=== PATIENT | female | born 1960 | race Caucasian/White ===

== ENCOUNTER → 2016-10-13 | Outpatient (CLI) | payer OTHER ==
[~2016-10-13] MED LIST: ASCO10003 PO; CALC500T PO; FLUO10CA15 PO; LEVO100T PO; LIOT5TAB PO; MAGN500T3 PO; MULT-506 PO; OMEG10007 PO; SNG10 PO; allergy shots
--- NOTE | 2016-10-13 15:20 | DIAGNOSTIC IMAGING REPORT ---
ADDENDUM In the body of the report, second paragraph a line states "mild gastroenteritis involves the temporomandibular joints". That sentence should read: "Mild degenerative change involves the temporal mandibular joints". Electronically signed by: South Das M.D. 10/17/2016 7:13 AM Dictated Date/Time: 10/17/2016 7:11 AM ORIGINAL REPORT FUSION CT SINUSES W/O HISTORY:56 [id number] Chronic sinusitisPATIENT WITH RECURRENT ACUTE SINUSITIS. HISTORY OF BREAST CANCER. COMPARISON: None available. TECHNIQUE: Multiple axial CT images of the paranasal sinuses were obtained without IV contrast utilizing fusion protocol. Coronal reformatted images were obtained from the axial data set. FINDINGS: The maxillary, ethmoid and frontal sinuses appear to be generally clear. Mild amount of bubbly secretions are seen dependently within the left sphenoid sinus. Right sphenoid sinus is clear. Note is made of a right-sided infraorbital ethmoid cell (nicely seen on image 30 of the coronal series) with similar appearing lesion seen on the left on image 32. The bilateral maxillary ostiomeatal units are patent. The bilateral frontoethmoidal and sphenoethmoidal recesses are patent. No large aida bullosa. Nasal septum is midline. Mild gastroenteritis involves the temporomandibular joints. No facial bone fracture identified. Mastoid air cells and middle ear cavities are clear. Imaged intracranial structures are unremarkable. Soft tissues are unremarkable. IMPRESSION: 1. Mild layering bubbly secretions are present within the left sphenoid sinus. Remaining paranasal sinuses are generally clear. No ostiomeatal occlusive pattern. 2. Small bilateral infraorbital ethmoid air cells (Larry cells). The above report was generated using voice recognition software. It may contain grammatical, syntax or spelling errors. Electronically signed by: South Das 10/13/2016 3:19 PM Dictated Date/Time: 10/13/2016 3:12 PM
== END | disposition home or self-care (01) ==
LOC: C.CTS 14:26
DX: J32.9 Chronic sinusitis, unspecified (principal); J34.89 Other specified disorders of nose and nasal sinuses

== ENCOUNTER → 2017-06-19 | Outpatient (CLI) | payer OTHER ==
--- NOTE | 2017-06-19 14:15 | DIAGNOSTIC IMAGING REPORT ---
TWO VIEW CHEST CLINICAL HISTORY: Bronchitis. FINDINGS: PA and lateral chest radiographs are compared to study dated 01/12/2012. The cardiomediastinal silhouette is unremarkable. The lungs and pleural spaces are clear. There is no pneumothorax. The bony thorax appears intact. Cholecystectomy clips are seen in the right upper quadrant. IMPRESSION: No active disease in the chest. Electronically signed by: Bry White M.D. 06/19/2017 2:14 PM Dictated Date/Time: 06/19/2017 2:14 PM
== END | disposition home or self-care (01) ==
LOC: C.RAD1850 14:02
PROVIDERS: ATTEND Internal Medicine Pulmonary Disease
DX: J40 Bronchitis, not specified as acute or chronic (principal)

== ENCOUNTER → 2017-06-19 | Outpatient (CLI) | payer OTHER ==
--- NOTE | 2017-06-19 15:33 | DIAGNOSTIC IMAGING REPORT ---
L RIBS UNILATERAL MIN 2 VIEWS HISTORY: 57 years-old Female RIB PAIN acute atypical chest pain with left-sided rib pain. No acute injury reported. COMPARISON: Chest radiograph of same day, CT chest 01/22/2015 TECHNIQUE: 4 views of the left ribs FINDINGS: Degenerative changes are noted about the left shoulder and spine. Irregular lucency with cortical irregularity involves the posterior lateral aspect of the left eighth rib. No acute displaced rib fracture identified. The remaining ribs are unremarkable. Surgical clips of the right upper abdomen are noted. IMPRESSION: 1. Subtle linear lucency with cortical irregularity involves the posterior lateral aspect of the left eighth rib. Correlate with point tenderness to exclude acute nondisplaced fracture. 2. No acute displaced rib fracture identified. The above report was generated using voice recognition software. It may contain grammatical, syntax or spelling errors. Electronically signed by: South Das M.D. 06/19/2017 3:31 PM Dictated Date/Time: 06/19/2017 3:28 PM
== END | disposition home or self-care (01) ==
LOC: C.RAD1850 14:57
PROVIDERS: ATTEND Physician Assistant Medical
DX: R07.81 Pleurodynia (principal)

== ENCOUNTER → 2017-07-20 | Outpatient (CLI) | payer OTHER ==
--- NOTE | 2017-07-20 08:27 | DIAGNOSTIC IMAGING REPORT ---
ABDOMINAL ULTRASOUND, RIGHT UPPER QUADRANT HISTORY: LIVER MASS SEEN ON CT. COMPARISON: Abdomen and pelvis CT 07/10/2017 outside hospital. FINDINGS: Pancreas: The pancreas demonstrates a normal echotexture. Liver: There is 1.1 cm hypoechoic lesion within the left hepatic lobe. There is also a 1.4 echogenic focus within the right hepatic lobe. Slightly nodular contour to the liver consistent with cirrhosis. Gallbladder: The gallbladder is surgically absent. CBD: 4 mm. Right kidney: No hydronephrosis. IMPRESSION: 1. A 1.1 cm hypoechoic lesion within the left hepatic lobe and 1.4 cm echogenic lesion within the right hepatic lobe. These are technically indeterminate by ultrasound. Follow-up nonemergent liver MRI would be considered the test of choice for further evaluation. 2. Cirrhotic liver. Electronically signed by: Eric Clements M.D. 07/20/2017 8:26 AM Dictated Date/Time: 07/20/2017 8:23 AM
== END | disposition home or self-care (01) ==
LOC: C.ULTR 07:55
PROVIDERS: ATTEND Internal Medicine Hematology & Oncology
DX: C41.2 Malignant neoplasm of vertebral column (principal); D49.0 Neoplasm of unspecified behavior of digestive system; K76.9 Liver disease, unspecified; K74.60 Unspecified cirrhosis of liver

== ENCOUNTER → 2017-07-27 | Outpatient (CLI) | payer OTHER ==
--- NOTE | 2017-07-28 07:47 | DIAGNOSTIC IMAGING REPORT ---
PET/CT CLINICAL HISTORY: Unspecified neoplasm of the vertebral column. COMPARISON STUDY: CT scan of the chest, abdomen, and pelvis dated 07/10/2017. Chest CT dated 01/22/2015. TECHNIQUE: One hour following the IV administration of 10.6 mCi of F-18 FDG, PET/CT examination was performed from the orbital meatal line through the bony pelvis. Noncontrast CT is performed for the purposes of anatomic correlation and attenuation correction. Note that this does not reflect a diagnostic CT examination. Images were reviewed on a separate [employer] independent workstation. Fused images were obtained. Standard uptake values reported are maximum values within the region of interest expressed in gm/mL. FINDINGS: PET FINDINGS: Head and neck: There is expected physiologic activity within the visualized brain parenchyma at the skull base and the salivary glands. Thorax: Evaluation of the thorax demonstrates expected physiologic myocardial activity. Abdomen and pelvis: There is expected activity within the liver, spleen, kidneys, renal collecting system, and bladder. Low-level bowel activity is likely within physical limits. There is an approximately 7 x 6.5 cm lesion is identified in the right lobe of liver on image #130. This is FDG avid with a maximum SUV of 5.0. Numerous additional smaller hepatic lesions are identified, and are scattered throughout both hepatic lobes (enrollment representative lesions are seen on image #108, #110, #112, #120, and #122). These were also mildly FDG avid. A small aortocaval lymph node seen on image #150 demonstrates low level activity with a maximum SUV of 3.0. This measures 7 mm in short axis. Skeletal structures: Findings are consistent with diffuse osteolytic metastatic disease. Lesions are seen throughout all of the visualized bony structures and demonstrate a maximum SUV of 6.6. No pathologic fracture is clearly identified. Note that large lesions within the right proximal femoral shaft, the sacrum and bony pelvis, and the spine place the patient at risk for insufficiency fracture. Unenhanced CT images: Visualized brain parenchyma the skull base is grossly normal in appearance. The bony orbits are intact. Orbital contents are normal as visualized. The imaged paranasal sinuses and mastoid air cells are clear. The salivary and thyroid glands are normal as visualized. No cervical lymphadenopathy is seen. There is aneurysmal dilatation of the ascending thoracic aorta which measures up to 4.4 cm in transverse diameter. The remainder of the thoracic aorta is normal in caliber. The heart is normal in size and without pericardial effusion. There is no airspace consolidation or pleural effusion. Linear atelectasis versus scarring is seen at the lung bases. Multiple foci of air trapping are noted throughout both lungs. No concerning pulmonary lesion is identified. There is no mediastinal, hilar, or axillary lymphadenopathy. The gallbladder is surgically absent. The liver is normal in size. See above under PET findings for discussion of hepatic lesions. The unenhanced spleen, right adrenal gland, and kidneys are normal as imaged. A 1.6 cm left adrenal nodule is pathologically indeterminant but was not demonstrably FDG avid. This has likely been present dating back to 2014. The pancreas is atrophic. The abdominal aorta is normal in course and caliber. No bowel obstruction is identified. Retained enteric contrast is noted. There is no abdominal ascites or intraperitoneal free air. There is no abdominal, pelvic, or inguinal lymphadenopathy. The bladder is normal as imaged. The uterus is surgically absent. No adnexal lesion is seen. The skeletal structures are osteopenic. IMPRESSION: 1. Findings are consistent with diffuse osteolytic metastatic disease. Lesions are seen throughout all visualized bony structures and were demonstrably FDG avid. 2. No pathologic fracture is identified at this time. Note that lesions throughout the spine, the bony pelvis, and in the right femoral shaft place the patient at risk for insufficiency fracture. 3. There is a dominant 7 cm hepatic mass lesion in the right lobe with numerous additional smaller lesions seen scattered throughout the liver. These were FDG avid and could represent hepatic metastatic disease versus primary hepatic neoplasm. Correlation with serum AFP levels is recommended. 4. There is a mildly FDG avid retroperitoneal lymph node. Metastatic disease is not excluded. 5. There is aneurysmal dilatation of the ascending thoracic aorta which measures up to 4.4 cm in transverse diameter. 6. Additional findings as detailed above. Electronically signed by: Bry White M.D. 07/28/2017 7:46 AM Dictated Date/Time: 07/28/2017 7:26 AM
== END | disposition home or self-care (01) ==
LOC: C.PET 12:03
PROVIDERS: ATTEND Internal Medicine Hematology & Oncology
DX: C41.2 Malignant neoplasm of vertebral column (principal)

== ENCOUNTER 2017-08-04 13:42 | Inpatient (IN) | payer OTHER ==
[~2017-08-04] VITALS: Ht 162.6 cm; Wt 57.2 kg
[2017-08-04] MEDS ORDERED: ACETAMINOPHEN 325 MG TAB PO PRN (15:15)
[2017-08-04] MEDS ORDERED: POLYETHYLENE (MIRALAX) 17 GM PACK PO PRN (15:15)
[2017-08-04] MEDS ORDERED: ZOLPIDEM TARTRATE 5 MG TAB PO PRN (15:15)
[2017-08-04] MEDS ORDERED: ONDANSETRON INJ 2 MG/ML 2 ML VIAL IV PRN (15:15)
[2017-08-04] MEDS ORDERED: MoRPHine SULFATE 4 MG/ML 1 ML CARP\\VIAL IV PRN (15:15)
[2017-08-04] MEDS ORDERED: ALUMINUM/MAGNESIUM/SIMETH (MAALOX MAX) 30 ML UDC PO PRN (15:15)
[2017-08-04] MEDS ORDERED: FUROSEMIDE INJ 20 MG in SYRINGE 0 ML IV STA (15:26)
[2017-08-04] MEDS ORDERED: PANTOprazole INJ 40 MG in SYRINGE 0 ML IV ONE (15:30)
--- NOTE | 2017-08-04 15:40 | History and Physical ---
History & Physical Date of Service August 04, 2017. History & Physical severe Hypercalcemia, malignancy metastasis, [id number]
[2017-08-04] MEDS ORDERED: POTASSIUM CHLORIDE 10 MEQ TABCR PO STA (15:42)
[2017-08-04] MEDS ORDERED: SODIUM CHLORIDE 0.9% 1000ML 1,000 ML IV SCH (15:45)
--- NOTE | 2017-08-04 15:55 | DIAGNOSTIC IMAGING REPORT ---
HEAD WITHOUT CONTRAST (CT) CLINICAL HISTORY: 57 years-old Female with severe HYpercalcimia, malignancy metastasis. Acute hypercalcemia with osteolytic metastatic disease TECHNIQUE: Multiple axial CT images of the head were obtained without contrast. A dose lowering technique was utilized adhering to the principles of ALARA. CT DOSE: 537.48 mGy.cm COMPARISON: PET CT 07/27/2017. FINDINGS: No acute intracranial hemorrhage, midline shift, intracranial mass, hydrocephalus, territorial ischemia or abnormal extra-axial collection. The calvarium is intact. No definite bony metastasis identified. The paranasal sinuses, mastoid air cells, and middle ear cavities are clear. IMPRESSION: No acute intracranial abnormality identified. The above report was generated using voice recognition software. It may contain grammatical, syntax or spelling errors. Electronically signed by: South Das M.D. 08/04/2017 3:54 PM Dictated Date/Time: 08/04/2017 3:51 PM
[2017-08-04] MEDS ORDERED: PATIENT'S HEIGHT AND/OR WEIGHT NEEDED SCH (16:00)
[2017-08-04] MEDS ORDERED: HydrALAZINE HCL 20 MG/ML VIAL IV. PRN (16:00)
[2017-08-04 16:10] VITALS: BMI 21.9
[2017-08-04 16:25] LABS: CALCIUM 13.9 mg/dl (8.5-10.1); CREATININE 1.31 mg/dl (0.60-1.20); PHOSPHORUS 3.2 mg/dl (2.5-4.9); POTASSIUM 3.4 mmol/L (3.5-5.1)
[2017-08-04] MEDS: POTASSIUM CHLORIDE INJ 10 MEQ in SODIUM CHLORIDE 0.9% 1000ML 1,000 ML IV SCH ×2 (16:30→21:10)
[2017-08-04 16:31] VITALS: BP 174/94; PULSE 78; TEMP 36.5; Ht 162.6 cm; Wt 57.2 kg
--- NOTE | 2017-08-04 17:13 | HISTORY & PHYSICAL EXAMINATION ---
DATE OF ADMISSION: 08/04/2017 This is an admission, 35 minutes. CHIEF COMPLAINT: Severe hypercalcemia, generalized weakness and nausea and vomiting. HISTORY OF PRESENT ILLNESS: Patient is a 57-year-old white female with the above chief complaint, was seen by Dr. Koehler 's clinic today. Patient reported she was found to have cancer metastasis to her bone about 3 weeks ago; in recent 5 days, she is feeling about significant tired, weakness, associated with nausea and vomiting, not able to keep any fluid down, and reports whole body ache, especially in cervical spine. She was found to have metastatic malignancy, the source of the malignancy is unknown. In Dr. Koehler's office lab was done. CBC was not remarkable. Potassium was 3.4, BUN and creatinine was elevated. Calcium is significant high at 14.9. Patient got IV infusion in Dr. Koehler's office and then patient had admission to the hospital. When I see patient, she is awake, alert, and orientated, conversational, confirming the above information. After IV infusions, she is feeling much better. Denied fever or chill, denied nausea or vomiting; denied abdominal pain, diarrhea, or constipation. Denied cough, sputum, shortness of breath. Denies skin rashes. Patient may have mild headache, denied blurry vision, double visions or local weakness. ALLERGIES: No known drug allergies. PAST SURGICAL HISTORY: Includes hysterectomy, cholecystectomy. OTHER PAST MEDICAL HISTORY: Includes left breast cancer, has lobectomy about 5 years ago in [facility]. FAMILY HISTORY: Father has prostate cancer. SOCIAL HISTORY: Denied alcohol abuse disorder, denied illicit drug abuse, denied tobacco abuse. REVIEW OF SYSTEMS: Please see HPI, otherwise 14 points organ system review were negative. MEDICATIONS: Medications taking at home which include fish oil 1 tab p.o. daily, multiple vitamin 1 tab p.o. daily, vitamin C 1000 mg p.o. daily, calcium gluconate 500 mg p.o. daily, Prozac 10 mg p.o. daily, levothyroxine 100 mcg p.o. daily; liothyronine 5 mcg tablets, 10 mcg p.o. daily; montelukast 10 mg p.o. daily. PHYSICAL EXAMINATION: VITAL SIGNS: Patient is afebrile, blood pressure at 110/70, respiratory rate 20, pulse ox was 95% on room air. GENERAL: Patient is awake, alert, and orientated, conversational, follows all commands, looking faint, mild anxious, a little bit tired. HEAD: Normocephalic. EYES: Pupils equal, round, responds to the light. EARS: Ear was normal. NOSE: Normal. NECK: Supple. Thyroid no enlargement. Trachea midline. HEART: Regular rhythm. S1, S2. LUNGS: Decreased breathing sounds. No wheezing, rhonchi or crackles. ABDOMEN: Soft, nontender. Bowel sound was positive. Bilateral CVA was nontender. MUSCULOSKELETAL: C-spine, T-spine, L-spine, no obvious tenderness. EXTREMITIES: Bilateral lower extremities, no swelling. Homans sign was negative. NEUROLOGICAL EVALUATION: Cranial nerves II-XII was intact. There was no local deficits. SKIN: Has no rashes. LABORATORY STUDIES: Like I mentioned, WBC 8.9, hemoglobin 13, platelet 153. Sodium 138, potassium 3.4, chloride 103, BUN 29, creatinine 1.38 compared to recent BUN and creatinine was 21/0.8 which was about 3 weeks ago. Calcium was 14.9 from 10.1. Alkaline phosphate is mildly elevated at 190. Total protein [address], [address] Koehler ordered some tumor markers include AFP, serotonin and SPEP. IMAGING STUDIES: on 06/19/2017, chest x-ray has no acute disease. Rib x-ray, there was no acute displaced rib fractures identified. Abdominal ultrasound studies on 07/20/2017, there was 1.1 cm hypoechoic lesion in the left hepatic lobe and 1.4 cm echogenic lesion in the right hepatic lobe. Recommend MRI studies and there was also showing cirrhotic liver. On 07/27/2017, PET/CT studies show diffuse osteolytic metastatic disease. There was dominant 4 cm hepatic mass in the right lobe. Numerous additional smaller lesions scattered throughout the liver. There was aneurysmal dilatations in the ascending thoracic aorta measured 4.4 cm. ASSESSMENT AND PLAN: A 57-year-old white female who is in the conditions see below. 1. Severe nausea and vomiting secondary to hypercalcemia. 2. Severe hypercalcemia, etiology unknown, may be malignancy related. 3. 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 This is recently diagnosed about 3 weeks ago. The source of the malignancy is unclear and we do not have any recent results. Patient has diffuse osteolytic metastatic disease. obviously metastasis to the liver too which is evident by exit of 7 cm hepatic mass with numerous liver metastatic disease. 4. Patient has history of left breast cancer status post lobectomy. 5. History of hysterectomy and right ovary removal. 6. History of asthma and anxiety. 7. Possible liver cirrhotic disease with history of possible heavy alcohol intake, but patient denied any history of abuse of alcohol. For the current situation, because of severe hypercalcemia, I am admitting her to [facility] monitoring, check EKG. Continue IV infusion and assess at 200 mL per hour. I will give Lasix 40 mg IV 1 dose now and daily 1 to get rid of the calciums and watch for electrolyte levels. Tomorrow morning lab ordered. Like I mentioned, Dr. Koehler is in follow up. I ordered a TSH, vit D level , parathyroid hormone and parathyroid hormone-related protein. Per conversation with Dr. Koehler possibility is neuroendocrine malignancy. Therefore head CT was ordered. Other medical conditions such as asthma, we will continue Singulair; anxiety, we will continue Prozac, will check vitamin D as well; GI and DVT prophylaxis is covered. Discussed with patient about the care plan and answered all her questions. SANDORD
[2017-08-04 17:21] LABS: HEMATOCRIT 39.2 % (37-47); HEMOGLOBIN 13.6 g/dL (12.0-16.0); MEAN CORPUSCULAR HEMOGLOBIN 29.5 pg (25-34); MEAN CORPUSCULAR HGB CONC 34.7 g/dl (32-36); MEAN PLATELET VOLUME 8.9 fL (7.4-10.4); PLATELET COUNT 167 K/uL (130-400); RED CELL DISTRIBUTION WIDTH SD 39.6 fL (36.4-46.3); WHITE BLOOD COUNT 10.01 K/uL (4.8-10.8)
[2017-08-04 19:28] VITALS: BP 159/88; PULSE 93; TEMP 36.6; O2SAT 92
[2017-08-04 20:20] VITALS: O2SAT 92
[2017-08-04] MEDS: PANTOprazole INJ 40 MG in SYRINGE 0 ML IV SCH (20:41)
[2017-08-04] MEDS: HEPARIN SOD 5000 UNIT/0.5 ML CARP SQ SCH (20:48)
[2017-08-04] MEDS: OXYCODONE/ACETAMINOPHEN 5-325 TAB PO PRN (23:31)
[2017-08-04 23:32] VITALS: BP 151/110; PULSE 78; TEMP 36.7; O2SAT 94
[2017-08-05] VITALS (7 sets, daily range): BP systolic 121–153; BP diastolic 75–94; PULSE 74–99; TEMP 36.6–38.1; O2SAT 90–98
[2017-08-05] MEDS: POTASSIUM CHLORIDE INJ 10 MEQ in SODIUM CHLORIDE 0.9% 1000ML 1,000 ML IV SCH ×4 (03:03→19:38)
[2017-08-05] MEDS: LEVOTHYROXINE 75 MCG TAB PO SCH (05:40)
[2017-08-05] MEDS ORDERED: LEVOTHYROXINE 100 MCG TAB PO SCH (06:00)
[2017-08-05 06:54] LABS: BASO % 0.3 %; BASO ABS # 0.03 K/uL (0-0.2); EOS % 1.1 %; HEMATOCRIT 33.8 % (37-47); HEMOGLOBIN 11.5 g/dL (12.0-16.0); IG# 0.12 K/uL (0.00-0.02); LYMPH % 41.4 %; LYMPH ABS # 3.78 K/uL (1.2-3.4); MEAN CELL VOLUME 85.4 fL (80-100); MEAN PLATELET VOLUME 9.4 fL (7.4-10.4); MONO ABS # 0.55 K/uL (0.11-0.59); NEUT % 49.9 %; NEUT ABS # 4.54 K/uL (1.4-6.5); PLATELET COUNT 148 K/uL (130-400); RED CELL DISTRIBUTION WIDTH SD 40.2 fL (36.4-46.3); WHITE BLOOD COUNT 9.12 K/uL (4.8-10.8)
[2017-08-05 07:32] LABS: CALCIUM 13.7 mg/dl (8.5-10.1); CREATININE 1.42 mg/dl (0.60-1.20); PHOSPHORUS 3.5 mg/dl (2.5-4.9); POTASSIUM 3.7 mmol/L (3.5-5.1)
[2017-08-05] MEDS: FLUOXETINE HCL 10 MG CAP PO SCH (07:52)
[2017-08-05] MEDS: FUROSEMIDE INJ 40 MG in SYRINGE 0 ML IV SCH (07:54)
[2017-08-05] MEDS: PANTOprazole INJ 40 MG in SYRINGE 0 ML IV SCH ×2 (07:55→20:46)
[2017-08-05] MEDS: HEPARIN SOD 5000 UNIT/0.5 ML CARP SQ SCH ×2 (07:57→20:51)
[2017-08-05] MEDS: OXYCODONE/ACETAMINOPHEN 5-325 TAB PO PRN ×3 (07:58→20:47)
[2017-08-05] MEDS ORDERED: NURSING VERBAL MED ORDER ONE ×4 (08:00→08:45)
[2017-08-05] MEDS ORDERED: ZOLEDRONIC ACID INJ 4 MG in SODIUM CHLORIDE 0.9% 100ML 100 ML IV ONE (08:15)
[2017-08-05] MEDS: LIOTHYRONINE SODIUM 5 MCG TAB PO SCH ×2 (08:22→15:36)
[2017-08-05] MEDS ORDERED: MONTELUKAST SOD 10 MG TAB PO SCH (09:00)
[2017-08-05] MEDS ORDERED: SODIUM CHLORIDE 0.9% IV ONE (09:00)
[2017-08-05] MEDS ORDERED: PAMIDRONATE DISODIUM IV INJ 60 MG in SODIUM CHLORIDE 0.9% 1000ML 1,000 ML IV ONE (09:00)
[2017-08-05] MEDS ORDERED: PAMIDRONATE DISODIUM IV ONE (09:00)
[2017-08-05] MEDS ORDERED: FLUOXETINE HCL 10 MG CAP PO SCH (09:00)
[2017-08-05] MEDS ORDERED: LIOTHYRONINE SODIUM 5 MCG TAB PO SCH (09:00)
--- NOTE | 2017-08-05 10:29 | ONCOLOGY CONSULTATION ---
DATE OF CONSULTATION: 08/05/2017 REASON FOR CONSULTATION: Hypercalcemia secondary to malignancy. HISTORY OF PRESENT ILLNESS: Suellen is a pleasant 57-year-old female patient well known to [facility] in fact admitted directly from the oncology clinic today because of elevated calcium levels. The patient reports not feeling well, manifested by fatigue, weakness and nausea and vomiting. 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 She did receive adjuvant radiation therapy. Apparently, was seen by Dr. Koehler in June at which time she had suffered a rib fracture. Her chest x-ray had confirmed fracture involving the anterolateral 7th rib and MRI was recommended. MRI was performed on 07/08/2017 complicated by motion artifact. However, there was abnormal enhancement seen in both the thoracic and upper lumbar spine. It was also noted that her liver appeared abnormal specifically within the right hepatic lobe. A PET scan was then performed on 07/27/2017 revealing hypermetabolic lesions throughout her entire axial skeleton with a large FDG avid mass within the right lobe of the liver. Dr. Koehler then performed a bone marrow biopsy and aspiration on 07/29/2017 revealing metastatic carcinoma, primary unknown. I believe the pathology has been sent out for second opinion. Again, in clinic yesterday, she was noted to have significantly elevated calcium in excess of 14 and was directly admitted for management. PAST MEDICAL HISTORY: Again, includes DCIS of the left breast, status post lumpectomy. Hypothyroidism. PAST SURGICAL HISTORY: Includes hysterectomy and cholecystectomy. MEDICATIONS: Prior to admission include fish oil 1 tablet p.o. daily, multivitamin 1 tablet p.o. daily, vitamin C 1000 mg p.o. daily, calcium gluconate 500 mg p.o. daily, Prozac 10 mg p.o. daily, levothyroxine 100 mcg p.o. daily, liothyronine 5 mcg 2 tablets p.o. daily, Singulair 10 mg p.o. daily. ALLERGIES: No known drug allergies. FAMILY HISTORY: Positive for prostate cancer on her father's side. SOCIAL HISTORY: Negative for alcohol, illicit drugs or tobacco abuse. REVIEW OF SYSTEMS: As per HPI most notably for a profound weakness, anorexia and nausea and vomiting. No fevers, chills or sweats. SKIN: No rashes or lesions. No history of dermatosis. HEENT: Negative for headaches, lightheadedness or dizziness. No acute visual or hearing deficits. No sinus symptoms, sore throat or dysphagia. LYMPHATIC: No history of peripheral lymphadenopathy or lymphoproliferative disease. CARDIAC: Negative for coronary artery disease, no angina or palpitations. PULMONARY: Negative for COPD. No shortness of breath, dyspnea or orthopnea. No cough or hemoptysis. GASTROINTESTINAL: Positive for nausea and vomiting. No abdominal pain. Negative for diarrhea or constipation. No hematochezia or melena stools. GENITOURINARY: No history of hematuria, dysuria, urinary incontinence. PSYCHIATRIC: Positive for anxiety. ENDOCRINE: Positive for hypothyroidism. NEUROLOGIC: Negative for seizure, stroke, or migraine headache. HEMATOLOGIC: Negative for anemia, thrombophilia or bleeding diathesis by history. PHYSICAL EXAMINATION: GENERAL: Very pleasant 57-year-old female, lying supine in bed, awake, alert and appropriate, in no acute distress. VITAL SIGNS: Temperature 36.7, pulse 77, respiratory rate 18, blood pressure 147/89. SKIN: Warm, dry, noncyanotic without petechia, rash or ecchymosis. HEAD: Atraumatic, normocephalic. EYES: PERRLA, EOMI. Sclerae nonicteric. No conjunctival injection. Nares are patent without rhinorrhea or discharge. Throat is clear. Tongue is midline. Mucous membranes are moist. NECK: Supple without JVD or thyromegaly. LYMPHATIC: No cervical, supraclavicular, axillary palpable nodes. HEART: Regular rate and rhythm. No clicks, rubs, murmurs or gallops. LUNGS: Clear to auscultation bilaterally. ABDOMEN: Soft, nontender, nondistended, without palpable hepatosplenomegaly. EXTREMITIES: Musculoskeletal strength and pulses are equal in all 4 quadrants. No clubbing, cyanosis or edema noted otherwise. NEUROLOGICAL: She is awake, alert and oriented x3. Cranial nerves II through XII were intact. No gross motor or sensory deficits are noted. LABORATORY DATA: WBC count 9120, hemoglobin 11.5, platelet count 148,000. Sodium 139, potassium 3.7, chloride 108, carbon dioxide 27, creatinine 1.42, BUN 29. IMPRESSION: 1. Hypercalcemia, secondary to malignancy. 2. Metastatic carcinoma, primary unknown. 3. Acute renal injury. 4. Nausea and vomiting, attributable to hypercalcemia. PLAN: The patient is a very pleasant 57-year-old female under Dr. Koehler's care, recently diagnosed with metastatic carcinoma, primary unknown. I believe the pathology has been sent out for second opinion. Nonetheless, developed symptoms related to elevated calcium level and was admitted to the medical service. Agree with IV fluid and a loop diuretic. In addition, would add pamidronate 60 mg IV over 2 hours. With her renal insufficiency, would definitely not proceed with a full dose. Continue to monitor electrolytes, specifically calcium on a daily basis. We will make arrangements for Suellen to follow up expediently with Dr. Koehler upon discharge. I have nothing further to add at this point. If there are any concerns or questions, feel free to contact me at any time.
[2017-08-05] MEDS ORDERED: FUROSEMIDE INJ 20 MG in SYRINGE 0 ML IV ONE (14:15)
--- NOTE | 2017-08-05 16:31 | Progress Note ---
Subjective Date of Service: August 05, 2017. Subjective pt states that she feels better despite only a very minor reduction in her Ca++ level, I did personally speak to pathology Dr Chauhan, Oncology Dr Koehler and the patients today regarding her case, these conversations took 45 minutes total discussion time in addition to her regular inpatient visit Review of Systems Constitutional: + weakness, + fatigue, No fever, No chills Respiratory: No cough, No shortness of breath, No dyspnea on exertion Cardiac: No chest pain, No PND, No edema Abdomen: + nausea, + constipation, No pain, No vomiting, No diarrhea Musculoskeletal: + joint pain, + muscle pain Female : + urinary frequency, No dysuria Neurologic: + weakness, No memory loss Psychiatric: + depression symptoms, No anhedonism Objective Vital Signs Date Time Temp Pulse Resp B/P (MAP) Pulse Ox O2 Delivery O2 Flow Rate FiO2 08/05/17 04:23 36.6 74 18 137/83 (101) 98 Nasal Cannula 2.0 08/05/17 04:00 Room Air 08/05/17 00:00 Room Air 08/04/17 23:32 36.7 78 18 151/110 (124) 94 Room Air 08/04/17 20:20 92 Room Air 08/04/17 19:28 36.6 93 16 159/88 (111) 92 Room Air 08/04/17 16:31 36.5 78 16 174/94 Room Air Physical Exam General Appearance: + mild distress, + thin Eyes: normal inspection, sclerae normal Neck: supple, no JVD Respiratory/Chest: chest non-tender, lungs clear Cardiovascular: regular rate, rhythm, no murmur Abdomen: normal bowel sounds, non tender, soft Neurologic/Psychiatric: alert, oriented x 3 Laboratory Results Last 24 Hours Test 08/04/17 15:31 08/04/17 17:03 08/05/17 06:07 Sodium Level 138 mmol/L 139 mmol/L Potassium Level 3.4 mmol/L 3.7 mmol/L Chloride Level 105 mmol/L 108 mmol/L Carbon Dioxide Level 26 mmol/L 27 mmol/L Anion Gap 7.0 mmol/L 4.0 mmol/L Blood Urea Nitrogen 27 mg/dl 29 mg/dl Creatinine 1.31 mg/dl 1.42 mg/dl Est Creatinine Clear Calc Drug Dose 39.1 ml/min 36.9 ml/min Estimated GFR () 51.5 46.7 Estimated GFR (Non- 44.5 40.3 BUN/Creatinine Ratio 20.3 20.2 Random Glucose 102 mg/dl 95 mg/dl Calcium Level 13.9 mg/dl 13.7 mg/dl Phosphorus Level 3.2 mg/dl 3.5 mg/dl Magnesium Level 2.4 mg/dl 2.4 mg/dl Thyroid Stimulating Hormone (TSH) 0.140 uIu/ml Free Thyroxine 0.75 ng/dl Hepatitis C Antibody Screen NEG White Blood Count 10.01 K/uL 9.12 K/uL Red Blood Count 4.61 M/uL 3.96 M/uL Hemoglobin 13.6 g/dL 11.5 g/dL Hematocrit 39.2 % 33.8 % Mean Corpuscular Volume 85.0 fL 85.4 fL Mean Corpuscular Hemoglobin 29.5 pg 29.0 pg Mean Corpuscular Hemoglobin Concent 34.7 g/dl 34.0 g/dl RDW Standard Deviation 39.6 fL 40.2 fL RDW Coefficient of Variation 13.0 % 13.0 % Platelet Count 167 K/uL 148 K/uL Mean Platelet Volume 8.9 fL 9.4 fL Prothrombin Time 10.0 SECONDS Prothromb Time International Ratio 1.0 25-Hydroxy Vitamin D Total 17.5 ng/ml Parathyroid Hormone (Intact) < 6.3 pg/mL Neutrophils (%) (Auto) 49.9 % Lymphocytes (%) (Auto) 41.4 % Monocytes (%) (Auto) 6.0 % Eosinophils (%) (Auto) 1.1 % Basophils (%) (Auto) 0.3 % Neutrophils # (Auto) 4.54 K/uL Lymphocytes # (Auto) 3.78 K/uL Monocytes # (Auto) 0.55 K/uL Eosinophils # (Auto) 0.10 K/uL Basophils # (Auto) 0.03 K/uL Immature Granulocyte % (Auto) 1.3 % Immature Granulocyte # (Auto) 0.12 K/uL Assessment and Plan 57F presents with hypercalcemia and osteoblastic metastatic disease of undetermined primary, recently discovered 7 cm liver mass and h/o breast cancer Hypercalcemia, IVF and diuretic, will administer a pamidronate to assist with bone turnover from metastatic disease, consult Dr. Koehler head CT without concern for lesions. I spoke to pathology and her bone marrow biopsy is looking like a neuroendocrine tumor but not defined as of yet with consideration of sending to outsider review. I spoke to Dr Arnold who also consurs will be likely a neuroendocrine tumor but also may wish to have outside review to confirm as clinical presentation does not fit completely. goal of care this stay is to reduce calcium and may not be to begin treatment Over replacement of thyroid, will reduce her thyroid supplementation asthma, stable continue Singulair anxiety/depression, continue Prozac, consider palliative care involvement I spoke to pts with her permission, he requests to establish care with PCP in local area who works well with Dr Arnold heparin for DVT prevention
[2017-08-05] MEDS: MONTELUKAST SOD 10 MG TAB PO SCH (20:46)
[2017-08-05] MEDS: MAGNESIUM HYDROXIDE SUSP 30 ML UDC PO PRN (20:51)
[2017-08-06] VITALS (10 sets, daily range): BP systolic 122–151; BP diastolic 76–87; PULSE 78–98; TEMP 36.4–37.7; O2SAT 90–97
[2017-08-06] MEDS: POTASSIUM CHLORIDE INJ 10 MEQ in SODIUM CHLORIDE 0.9% 1000ML 1,000 ML IV SCH ×4 (00:27→18:39)
[2017-08-06] MEDS: LEVOTHYROXINE 75 MCG TAB PO SCH (06:02)
[2017-08-06 06:55] LABS: HEMATOCRIT 32.4 % (37-47); HEMOGLOBIN 11.3 g/dL (12.0-16.0); MEAN CELL VOLUME 83.9 fL (80-100); MEAN CORPUSCULAR HEMOGLOBIN 29.3 pg (25-34); MEAN CORPUSCULAR HGB CONC 34.9 g/dl (32-36); MEAN PLATELET VOLUME 8.8 fL (7.4-10.4); PLATELET COUNT 118 K/uL (130-400); RED CELL DISTRIBUTION WIDTH CV 13.2 % (11.5-14.5); RED CELL DISTRIBUTION WIDTH SD 39.8 fL (36.4-46.3); WHITE BLOOD COUNT 9.06 K/uL (4.8-10.8)
[2017-08-06] MEDS: MAGNESIUM HYDROXIDE SUSP 30 ML UDC PO PRN (07:06)
[2017-08-06 07:29] LABS: CALCIUM 11.3 mg/dl (8.5-10.1); CREATININE 1.35 mg/dl (0.60-1.20); POTASSIUM 3.5 mmol/L (3.5-5.1)
[2017-08-06] MEDS: LIOTHYRONINE SODIUM 5 MCG TAB PO SCH ×2 (07:59→16:11)
[2017-08-06] MEDS: FLUOXETINE HCL 10 MG CAP PO SCH (08:00)
[2017-08-06] MEDS: PANTOprazole INJ 40 MG in SYRINGE 0 ML IV SCH ×2 (08:00→21:26)
[2017-08-06] MEDS: FUROSEMIDE INJ 40 MG in SYRINGE 0 ML IV SCH (08:00)
[2017-08-06] MEDS: HEPARIN SOD 5000 UNIT/0.5 ML CARP SQ SCH ×2 (08:06→21:36)
[2017-08-06] MEDS ORDERED: IBUPROFEN 200 MG TAB PO ONE (08:30)
[2017-08-06] MEDS ORDERED: NURSING VERBAL MED ORDER ONE ×2 (08:30→11:15)
[2017-08-06] MEDS ORDERED: IBUPROFEN 200 MG TAB PO PRN (08:30)
--- NOTE | 2017-08-06 08:51 | HEME/ONC PROGRESS NOTE ---
DATE: 08/06/2017 DIAGNOSES: 1. Hypercalcemia, attributable to malignancy. 2. Metastatic carcinoma, primary unknown. 3. Acute renal injury. 4. Nausea and vomiting, attributable to hypercalcemia. SUBJECTIVE: Suellen was seen and examined at bedside this morning. Unfortunately, developed bifrontal headache overnight. Pamidronate is known to cause headache and suspect is the underlying cause. Otherwise, her calcium has come down nicely, presently measuring 11.3. Her creatinine is also improved to 1.35. Clinically, doing well otherwise. Await final pathology report. PHYSICAL EXAMINATION: GENERAL: She is in no acute distress. VITAL SIGNS: Temperature is 37.6, pulse 93, respirations 19, blood pressure 151/87. SKIN: Without rash or lesion. HEENT: Oral mucosa without erythema or ulceration. HEART: Regular rate and rhythm. LUNGS: Clear to auscultation bilaterally. ABDOMEN: Soft, nontender, nondistended. EXTREMITIES: No clubbing, cyanosis, or edema. NEUROLOGIC: She is grossly intact. LABORATORY DATA: Sodium 135, potassium 3.5, chloride 105, carbon dioxide 26, BUN 25, creatinine 1.35, calcium 11.3. WBC count 9060, hemoglobin 11.3, platelet count 118,000. IMPRESSION: 1. Hypercalcemia secondary to malignancy. 2. Metastatic carcinoma, primary unknown. 3. Acute renal injury. 4. Bifrontal headache. 5. Delusional cytopenias (anemia/thrombocytopenia). PLAN: I had the pleasure of visiting with Suellen at bedside again today. I was very pleased to see her calcium level is falling, presently measuring 11.3. Her creatinine is also improved. Unfortunately, she developed a bifrontal headache overnight and will order ibuprofen 400 mg p.o. q. 6 hours p.r.n. as Suellen utilizes this agent for headaches regularly. Pathology is pending. As long as her numbers continue to trend downward, I suspect she will be discharged in the next 24-48 hours. I will ensure expedient follow up with Dr. Koehler upon hospital discharge. I have nothing further to add at this juncture. Thank you again for allowing me to assist in the care of this very pleasant lady. [facility] HOSPITALMarissa
[2017-08-06] MEDS ORDERED: MoRPHine SULFATE 4 MG/ML 1 ML CARP\\VIAL IV PRN ×2 (11:00)
--- NOTE | 2017-08-06 11:50 | DIAGNOSTIC IMAGING REPORT ---
CHEST 2 VIEWS ROUTINE CLINICAL HISTORY: fever cough COMPARISON STUDY: 07/18/2017 FINDINGS: Bibasilar parenchymal infiltrates. And upper lungs are clear. Diaphragms are smooth. IMPRESSION: Bibasilar parenchymal infiltrates. The above report was generated using voice recognition software. It may contain grammatical, syntax or spelling errors. Electronically signed by: Suresh Angel M.D. 08/06/2017 11:49 AM Dictated Date/Time: 08/06/2017 11:48 AM
[2017-08-06] MEDS ORDERED: FUROSEMIDE INJ 40 MG in SYRINGE 0 ML IV ONE (15:00)
--- NOTE | 2017-08-06 17:09 | Progress Note ---
Subjective Date of Service: August 06, 2017. Subjective pt feels somewhat feverish and has headache, temp was noted, no focal issues at this time CXR with some basilar issues but not clear pneumonia pending urine culture Review of Systems Constitutional: + fever, + chills, + weakness, + fatigue, + problem reported ( headache) Respiratory: No cough, No sputum, No shortness of breath Cardiac: No chest pain, No orthopnea, No edema Abdomen: No pain, No nausea, No vomiting, No diarrhea Neurologic: No memory loss, No paralysis Psychiatric: + anxiety, No depression symptoms, No anhedonism Objective Vital Signs Date Time Temp Pulse Resp B/P (MAP) Pulse Ox O2 Delivery O2 Flow Rate FiO2 08/06/17 15:12 36.4 78 16 125/82 (96) 97 Room Air 08/06/17 12:37 Room Air 08/06/17 12:02 36.7 80 16 129/78 (95) 92 Room Air 08/06/17 11:52 36.6 81 19 137/82 (100) 94 Nasal Cannula 2.0 08/06/17 11:32 37.6 93 19 91 2.0 08/06/17 08:14 37.6 93 19 151/87 (108) 91 Room Air 08/06/17 08:00 Room Air 08/06/17 04:01 37.7 98 18 138/79 (98) 94 Room Air 08/06/17 04:00 94 Room Air 2.0 08/06/17 00:00 92 Room Air 2.0 08/05/17 23:14 38.1 99 20 153/83 (106) 90 Room Air 08/05/17 20:45 90 Room Air 08/05/17 18:45 37.1 88 18 121/75 (90) 90 Room Air Physical Exam General Appearance: WD/WN, + mild distress Eyes: normal inspection, sclerae normal Neck: supple, no JVD Respiratory/Chest: chest non-tender, + decreased breath sounds (bases) Cardiovascular: regular rate, rhythm, no murmur Abdomen: normal bowel sounds, non tender, soft Extremities: no pedal edema, no calf tenderness Neurologic/Psychiatric: alert, oriented x 3 Laboratory Results Last 24 Hours Test 08/06/17 06:31 White Blood Count 9.06 K/uL Red Blood Count 3.86 M/uL Hemoglobin 11.3 g/dL Hematocrit 32.4 % Mean Corpuscular Volume 83.9 fL Mean Corpuscular Hemoglobin 29.3 pg Mean Corpuscular Hemoglobin Concent 34.9 g/dl RDW Standard Deviation 39.8 fL RDW Coefficient of Variation 13.2 % Platelet Count 118 K/uL Mean Platelet Volume 8.8 fL Sodium Level 135 mmol/L Potassium Level 3.5 mmol/L Chloride Level 105 mmol/L Carbon Dioxide Level 26 mmol/L Anion Gap 4.0 mmol/L Blood Urea Nitrogen 25 mg/dl Creatinine 1.35 mg/dl Est Creatinine Clear Calc Drug Dose 38.8 ml/min Estimated GFR () 49.7 Estimated GFR (Non- 42.9 BUN/Creatinine Ratio 18.7 Random Glucose 119 mg/dl Calcium Level 11.3 mg/dl Assessment and Plan 57F presents with hypercalcemia and osteoblastic metastatic disease of undetermined primary, recently discovered 7 cm liver mass and h/o breast cancer Hypercalcemia, IVF and diuretic, did receive pamidronate to assist with bone turnover from metastatic disease, calcium has improved to 11.[address] Ry Knowles/Dr Negro head CT without concern for lesions. pathology is still looking like a neuroendocrine tumor goal of care this stay remains to reduce calcium and may not be to begin treatment fever, no obvious source, was associated with headache, no meningeal issues noted on my visit today, check ua, cxr not convincing for pneumonia, no wbc Over replacement of thyroid, will reduce her thyroid supplementation asthma, remains stable continue Singulair anxiety/depression, continue Prozac, anxiety about clarity of diagnosis consider palliative care involvement, pt is not ready yet I spoke to pts with her permission, he requests to establish care with PCP in local area who works well with Dr Arnold heparin for DVT prevention
[2017-08-06] MEDS: OXYCODONE/ACETAMINOPHEN 5-325 TAB PO PRN ×2 (17:32→21:25)
[2017-08-06] MEDS: MONTELUKAST SOD 10 MG TAB PO SCH (21:24)
[2017-08-07] MEDS: POTASSIUM CHLORIDE INJ 10 MEQ in SODIUM CHLORIDE 0.9% 1000ML 1,000 ML IV SCH ×2 (01:51→11:46)
[2017-08-07] MEDS: OXYCODONE/ACETAMINOPHEN 5-325 TAB PO PRN ×3 (05:48→12:41)
[2017-08-07] MEDS: LEVOTHYROXINE 75 MCG TAB PO SCH (05:48)
[2017-08-07 07:24] VITALS: BP 128/79; PULSE 83; TEMP 36.6; O2SAT 92
[2017-08-07] MEDS: FLUOXETINE HCL 10 MG CAP PO SCH (08:00)
[2017-08-07] MEDS: LIOTHYRONINE SODIUM 5 MCG TAB PO SCH (08:23)
[2017-08-07] MEDS: PANTOprazole INJ 40 MG in SYRINGE 0 ML IV SCH (08:24)
[2017-08-07] MEDS: FUROSEMIDE INJ 40 MG in SYRINGE 0 ML IV SCH (08:24)
[2017-08-07] MEDS: HEPARIN SOD 5000 UNIT/0.5 ML CARP SQ SCH (08:29)
--- NOTE | 2017-08-07 10:31 | HEME/ONC PROGRESS NOTE ---
DATE: 08/07/2017 DIAGNOSES: 1. Metastatic atypical carcinoid (neuroendocrine tumor). 2. Hypercalcemia, attributable to malignancy. 3. Acute renal injury. 4. Nausea and vomiting, attributable to hypercalcemia. SUBJECTIVE: Suellen was seen and examined at bedside again this morning. Much better headache, did improve overnight. Her calcium level now is in the 10 range. Creatinine is pending at the time of this dictation. Clinically, she is otherwise doing well. Final pathology is consistent with a low-grade neuroendocrine tumor. Dr. Koehler is planning to pursue octreotide scan which would most likely take place as outpatient. Suellen has no complaints of pain today and again nursing reports no overnight difficulties. PHYSICAL EXAMINATION: GENERAL: A very pleasant 57-year-old female, in no acute distress. VITAL SIGNS: Temperature 36.6, pulse 83, respirations 20, blood pressure 128/79. SKIN: Without rash or lesion. HEENT: Oral mucosa without erythema or ulceration. NECK: Supple. HEART: Regular rate and rhythm. LUNGS: Fine bibasilar crackles are heard. ABDOMEN: Soft, nontender, nondistended. EXTREMITIES: No clubbing, cyanosis, edema. NEUROLOGICAL: She is grossly intact. LABORATORY DATA: Calcium 10.7. IMPRESSION: 1. Metastatic atypical carcinoid. 2. Hypercalcemia, secondary to malignancy. 3. Acute renal injury. 4. Bifrontal headache. PLAN: Suellen was seen and examined again at bedside. Clinically, doing much better, tolerating diet, actually moved her bowels in the last 24 hours. Calcium now measures 10.7. Briefly, spoke to Dr. Koehler after seeing her and he would like an octreotide scan to be done once discharged from hospital. Ultimately, octreotide therapy is planned. From an oncologic standpoint, I have nothing further to add during this admission and will officially sign off. I anticipate she may be discharged in the next day or so. Thank you again for allowing us to participate in her care. MEGAN
--- NOTE | 2017-08-07 13:36 | Discharge Instructions ---
Discharge Instructions Date of Service August 07, 2017. Admission Reason for Admission: Malignant Neoplasm Of Bone,Hypercalcemia Discharge Discharge Diagnosis / Problem: elevated calcium Discharge Goals Goal(s): Diagnostic testing, Therapeutic intervention Activity Recommendations Activity Limitations: as noted below Lifting Limitations: gradually increase as tolerated . Instructions / Follow-Up Instructions / Follow-Up Please be sure to be well hydrated, water is good but also to include hydration other than water Please have outpt lab checks weekly results to Dr Arnold and your primary care doctor Current Hospital Diet Patient's current hospital diet: Regular Diet Discharge Diet Recommended Diet: Regular Diet Pending Studies Studies pending at discharge: no Medical Emergencies . Who to Call and When: Medical Emergencies: If at any time you feel your situation is an emergency, please call 911 immediately. . Non-Emergent Contact Non-Emergency issues call your: Primary Care Provider, Oncologist Call Non-Emergent contact if: temperature is above 101, your pain is unusual for you . . "Provider Documentation" section prepared by Remington Bateman. .
[2017-08-07 14:03] VITALS: BP 128/79; PULSE 83; TEMP 36.6; O2SAT 92
--- NOTE | 2017-08-07 16:00 | Discharge Summary ---
Discharge Summary Date of Service August 07, 2017. Discharge Summary Admission Date: August 04, 2017 at 14:45 Discharge Date: August 07, 2017 Discharge Disposition: Home Principal Diagnosis: malignancy associated hypercalcemia with symptoms Immunizations: Have You Had Influenza Vaccine: No History of Tetanus Vaccine?: No History of Pneumococcal: No Pneumococcal Date: Feb 02, 2002 History of Hepatitis B Vaccine: No Medication Reconciliation Continued Medications: Ascorbic Acid (Vitamin C) 1,000 Mg Tab 1 TAB PO DAILY Fish Oil ([place]-3) 1 Ea Cap 1 CAP PO DAILY, 0 Refills Fluoxetine Hcl (Pmdd) (Prozac) 10 Mg Cap 10 MG PO DAILY, CAP Levothyroxine Sodium (Synthroid) 100 Mcg Tab 100 MCG PO DAILY, TAB Liothyronine Sodium (Cytomel) 5 Mcg Tab 10 MCG PO DAILY, TAB Magnesium Gluconate (Magnesium Gluconate) 500 Mg Tab 1 TAB PO DAILY Montelukast Sod (Montelukast Sodium) 10 Mg Tab 1 TAB PO DAILY Multivitamin (Multivitamin) Tab 1 TAB PO DAILY, 0 Refills [allergy shots] () DIRECTED Discontinued Medications: Calcium Gluconate (Calcium Gluconate) 500 Mg Tab 1 TAB PO DAILY Discharge Exam Review of Systems: Constitutional: No fever, No chills, No sweats Respiratory: No cough, No sputum, No wheezing Cardiovascular: No chest pain, No orthopnea Abdomen: No pain, No nausea, No vomiting Musculoskeletal: No joint pain, No muscle pain Physical Exam: General Appearance: WD/WN, no apparent distress Eyes: normal inspection, sclerae normal Neck: supple, no JVD Respiratory/Chest: chest non-tender, lungs clear, normal breath sounds Cardiovascular: regular rate, rhythm, no murmur Abdomen / GI: normal bowel sounds, non tender, soft Extremities: no pedal edema, normal range of motion Hospital Course 57F presents with hypercalcemia and osteoblastic metastatic disease of undetermined primary, recently discovered 7 cm liver mass and h/o breast cancer Hypercalcemia, responded well to IVF, diuretic, and pamidronate Dr. Koehler/ Dr Negro have seen patients while here head CT without concern for lesions. pathology states bone marrow is still looking like a neuroendocrine tumor fever, no obvious source, was associated with headache, no meningeal issues noted cxr not convincing for pneumonia, no wbc. Pt and family were educated to keep vigilance for signs and symptoms of pneumonia continue thyroid supplementation, monitor outpt thyroid levels asthma, remains stable continue Singulair anxiety/depression, continue Prozac, dose was increased slightly Total Time Spent: Greater than 30 minutes This includes examination of the patient, discharge planning, medication reconciliation, and communication with other providers. Discharge Instructions Please refer to the electronic Patient Visit Report (Discharge Instructions) for additional information.
== END 2017-08-07 15:45 | disposition home or self-care (01) | DRG 641 ==
LOC: C.2T 14:45 → ENRESERV 08-06 01:00 → C.2T 08-06 01:30 → ENRESERV 08-06 11:02 → C.4E 08-06 11:56
PROVIDERS: ADMIT Hospitalist; ATTEND Hospitalist
DX: E83.52 Hypercalcemia (principal); C79.51 Secondary malignant neoplasm of bone; C78.7 Secondary malignant neoplasm of liver and intrahepatic bile duct; N17.9 Acute kidney failure, unspecified; C7A.098 Malignant carcinoid tumors of other sites; C7A.8 Other malignant neuroendocrine tumors; J45.909 Unspecified asthma, uncomplicated; F41.9 Anxiety disorder, unspecified; F32.9 Major depressive disorder, single episode, unspecified; E03.9 Hypothyroidism, unspecified; R51 Headache; D75.9 Disease of blood and blood-forming organs, unspecified; R50.9 Fever, unspecified; Z85.3 Personal history of malignant neoplasm of breast; Z90.710 Acquired absence of both cervix and uterus; Z90.49 Acquired absence of other specified parts of digestive tract; Z80.42 Family history of malignant neoplasm of prostate

== ENCOUNTER 2017-08-10 20:26 | Emergency (ER) | payer OTHER ==
[~2017-08-10] VITALS: Ht 160 cm; Wt 61.2 kg
[~2017-08-10 20:26] MED LIST changes: -CALC500T PO
[2017-08-10 20:28] VITALS: Ht 160 cm; Wt 61.2 kg
[2017-08-10] MEDS ORDERED: SODIUM CHLORIDE 0.9% 1000ML 1,000 ML IV STA (20:55)
--- NOTE | 2017-08-10 21:14 | EMERGENCY ROOM VISIT NOTE ---
History Report prepared by Nancy: Juancarlos Medina Under the Supervision of: Dr. Sathya Chatman M.D. First contact with patient: 20:53 Chief Complaint: FEVER Stated Complaint: FEVER,PAIN,CANCER History of Present Illness The patient is a 57 year old female who presents to the Emergency Room with complaints of a constant fever beginning 3 hours ago. The patient states 100 degrees was the highest her symptoms have been. She reports she had her blood work taken in the morning and did some errands afterwards. The patient notes she came home and took a nap. She states she woke up 3 hours ago and was experiencing a fever, chills, body aches, and shortness of breath. 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 She notes they are everywhere throughout her body. The patient notes she has not received treatment for her tumors yet because they do not know what the source of the cancer is. The patient states she was discharged from the hospital 3 days ago for hyperglycemia. She reports since then, she feels more bloated and slightly more short of breath. She states she is in remission from breast cancer. The patient reports she takes 2.5mg of hydrocodone for broken ribs and takes Advil in between if needed. The patient states she has a history of migraine. She reports she follows up with Dr. Koehler, Oncology. The patient notes she does not take blood thinner, but she was given subcutaneous heparin twice a day while in the hospital. Review of EMR shows the patient's WBC and Ca2+ levels were within normal limits, and she was not neutropenic. Source of History: patient Onset: 3 hours ago Symptom Intensity: 100 degrees Quality: other (fever) Timing: constant Associated Symptoms: + chills, + SOB Note: Associated symptoms: bloated, body aches Review of Systems See HPI for pertinent positives and negatives. A total of ten systems were reviewed and were otherwise negative. Past Medical & Surgical Medical Problems: (1) Dysmenorrhea (2) Salpingo-oophorectomy (3) severe hypercalcemia (4) Total abdominal hysterectomy Family History Heart disease Social History Smoking Status: Never Smoker Smokeless Tobacco Use: No Alcohol Use: occasionally Marital Status: Housing Status: lives with significant other Occupation Status: unemployed Current/Historical Medications Scheduled Ascorbic Acid (Vitamin C), 1 TAB PO DAILY Fish Oil ([place]-3), 1 CAP PO DAILY Fluoxetine Hcl (Pmdd) (Prozac), 10 MG PO DAILY Levothyroxine Sodium (Synthroid), 100 MCG PO DAILY Liothyronine Sodium (Cytomel), 10 MCG PO DAILY Magnesium Gluconate (Magnesium Gluconate), 1 TAB PO DAILY Montelukast Sod (Montelukast Sodium), 1 TAB PO DAILY Multivitamin (Multivitamin), 1 TAB PO DAILY [allergy shots], DIRECTED Allergies Coded Allergies: No Known Allergies (Unverified , 12/03/10) Physical Exam Vital Signs Date Time Temp Pulse Resp B/P (MAP) Pulse Ox O2 Delivery O2 Flow Rate FiO2 08/11/17 01:08 90 18 156/95 91 08/11/17 00:06 37.0 77 18 148/90 90 Room Air 08/11/17 00:04 78 08/10/17 22:39 66 18 155/98 Room Air 08/10/17 20:51 87 08/10/17 20:28 37.4 97 18 162/97 93 Room Air Physical Exam GENERAL: Awake, alert, fatigued and cachectic-appearing, in no distress. HENT: Normocephalic, atraumatic. Oropharynx has dry mucus membranes otherwise unremarkable. EYES: Normal conjunctiva. Sclera non-icteric. NECK: Supple. No nuchal rigidity. FROM. No JVD. RESPIRATORY: Clear to auscultation. CARDIAC: Regular rate, normal rhythm. Extremities warm and well perfused. Pulses equal. ABDOMEN: Soft, non-distended. No tenderness to palpation. No rebound or guarding. No masses. RECTAL: Deferred. MUSCULOSKELETAL: Chest examination reveals no tenderness. The back is symmetrical on inspection without obvious abnormality. There is no CVA tenderness to palpation. No joint edema. LOWER EXTREMITIES: Calves are equal size bilaterally and non-tender. Scant pedal edema bilaterally with no erythema, tenderness, or warmth. No discoloration. NEURO: Normal sensorium. No sensory or motor deficits noted. SKIN: No rash or jaundice noted. Medical Decision & Procedures ER Provider Diagnostic Interpretation: Radiology results as stated below per my review and radiologist interpretation: CHEST ONE VIEW PORTABLE CLINICAL HISTORY: ABDOMINAL PAIN/GI fever COMPARISON STUDY: 08/06/2017 FINDINGS: Slightly improved bibasilar parenchymal infiltrates. Improved aeration right base. General left basilar infiltrate compared to the prior exam. Upper lungs are clear. IMPRESSION: Slightly improved basilar parenchymal infiltrates. The above report was generated using voice recognition software. It may contain grammatical, syntax or spelling errors. Electronically signed by: Suresh Angel M.D. 08/10/2017 9:44 PM Dictated Date/Time: 08/10/2017 9:43 PM VENOUS DOPPLER LWR EXT BILA HISTORY: Pain. Edema. metstatic disease, cp/sob/leg swelling COMPARISON STUDY: None. FINDINGS: There is normal compressibility, flow, and augmentation within the bilateral lower extremity deep venous systems. IMPRESSION: No DVT within the right or left lower extremity. The above report was generated using voice recognition software. It may contain grammatical, syntax or spelling errors. Electronically signed by: Suresh Angel M.D. 08/10/2017 10:36 PM Dictated Date/Time: 08/10/2017 10:35 PM [facility] Radiology results as stated below per my review and radiologist interpretation: Preliminary Findings Only See Final Report For Complete Findings CTA CHEST: No evidence of filling defect to suggest pulmonary embolism Thoracic aorta within limits Small left pleural effusion and trace right No pericardial effusion Basilar atelectasis Geographic appearance of the lungs may represent atelectasis, air-trapping, pneumonitis Central airways are patent Diffuse appearing osseous lesions Radiologist: Colby Moya M.D. Study ready at 23:15 and initial results transmitted at 00:09 Preliminary Findings Only See Final Report For Complete Findings CT ABDOMEN & PELVIS With Contrast: Heterogeneous liver, lesions and periportal edema Status post cholecystectomy No bowel dilation or free air Anasarca Diffuse osseous lesions No evidence of pelvic or retroperitoneal mass Inferior vena cava appears patent Radiologist: Colby Moya M.D. Study ready at 23:15 and initial results transmitted at 00:18 Laboratory Results 08/10/17 21:21 Red Blood Count 3.61, Mean Corpuscular Volume 84.2, Mean Corpuscular Hemoglobin 28.8, Mean Corpuscular Hemoglobin Concent 34.2, Mean Platelet Volume 9.1, Neutrophils (%) (Auto) 55.2, Lymphocytes (%) (Auto) 31.1, Monocytes (%) (Auto) 5.6, Eosinophils (%) (Auto) 1.8, Basophils (%) (Auto) 1.0, Neutrophils # (Auto) 4.06, Lymphocytes # (Auto) 2.28, Monocytes # (Auto) 0.41, Eosinophils # (Auto) 0.13, Basophils # (Auto) 0.07 08/10/17 21:21 Test 08/10/17 20:40 08/10/17 21:21 08/10/17 21:24 Urine Color YELLOW Urine Appearance CLEAR (CLEAR) Urine pH 7.5 (4.5-7.5) Urine Specific [place] 1.011 (1.000-1.030) Urine Protein NEG (NEG) Urine Glucose (UA) NEG (NEG) Urine Ketones TRACE (NEG) Urine Occult Blood NEG (NEG) Urine Nitrite NEG (NEG) Urine Bilirubin NEG (NEG) Urine Urobilinogen NEG (NEG) Urine Leukocyte Esterase NEG (NEG) White Blood Count 7.34 K/uL (4.8-10.8) Red Blood Count 3.61 M/uL (4.2-5.4) Hemoglobin 10.4 g/dL (12.0-16.0) Hematocrit 30.4 % (37-47) Mean Corpuscular Volume 84.2 fL (80-100) Mean Corpuscular Hemoglobin 28.8 pg (25-34) Mean Corpuscular Hemoglobin Concent 34.2 g/dl (32-36) Platelet Count 128 K/uL (130-400) Mean Platelet Volume 9.1 fL (7.4-10.4) Neutrophils (%) (Auto) 55.2 % Lymphocytes (%) (Auto) 31.1 % Monocytes (%) (Auto) 5.6 % Eosinophils (%) (Auto) 1.8 % Basophils (%) (Auto) 1.0 % Neutrophils # (Auto) 4.06 K/uL (1.4-6.5) Lymphocytes # (Auto) 2.28 K/uL (1.2-3.4) Monocytes # (Auto) 0.41 K/uL (0.11-0.59) Eosinophils # (Auto) 0.13 K/uL (0-0.5) Basophils # (Auto) 0.07 K/uL (0-0.2) RDW Standard Deviation 42.3 fL (36.4-46.3) RDW Coefficient of Variation 13.8 % (11.5-14.5) Immature Granulocyte % (Auto) 5.3 % Immature Granulocyte # (Auto) 0.39 K/uL (0.00-0.02) Anion Gap 7.0 mmol/L (3-11) Est Creatinine Clear Calc Drug Dose 49.6 ml/min Estimated GFR () 70.6 Estimated GFR (Non- 60.9 BUN/Creatinine Ratio 14.6 (10-20) Calcium Level 8.5 mg/dl (8.5-10.1) Phosphorus Level 1.8 mg/dl (2.5-4.9) Magnesium Level 2.7 mg/dl (1.8-2.4) Total Bilirubin 0.6 mg/dl (0.2-1) Direct Bilirubin 0.2 mg/dl (0-0.2) Aspartate Amino Transf (AST/SGOT) 192 U/L (15-37) Alanine Aminotransferase (ALT/SGPT) 88 U/L (12-78) Alkaline Phosphatase 230 U/L (45-117) Troponin I < 0.015 ng/ml (0-0.045) Total Protein 7.2 gm/dl (6.4-8.2) Albumin 3.3 gm/dl (3.4-5.0) Lipase 247 U/L (73-393) Influenza Type A (RT-PCR) Neg for Influ A (NEG) Influenza Type B (RT-PCR) Neg for Influ B (NEG) Prothrombin Time 10.4 SECONDS (9.0-12.0) Prothromb Time International Ratio 1.0 (0.9-1.1) Laboratory results reviewed by me Medications Administered Medications (Trade) Dose Ordered Sig/Kael Route Start Time Stop Time Status Last Admin Dose Admin Sodium Chloride 1,000 ml @ 999 mls/hr Q1H1M STAT IV 08/10/17 20:55 08/10/17 21:55 DC 08/10/17 21:10 999 MLS/HR ECG Per My Interpretation Indication: SOB/dyspnea Rate (beats per minute): 89 Rhythm: normal sinus Findings: no acute ischemic change, other (Normal axis) ED Course 2054: The patient was evaluated in room C08. A complete history and physical exam was performed. Medical Decision I reviewed the patient's past medical history, medications, and the nursing notes as described above. Differential diagnosis: Etiologies such as cardiac ischemia, aortic dissection, pulmonary embolism, pneumonia, pneumothorax, musculoskeletal, infections, pericarditis, myocarditis , esophageal rupture, gastrointestinal, reactive airway disease, COPD, CHF, musculoskeletal, as well as others were entertained. The patient is a 57 y/o woman with a pmhx of metastatic disease of unknown origin who presents to the emergency department with low grade fevers per HPI. Of note, patient was admitted 08/04-08/07 for hypercalcemia related to her metastatic disease. On arrival the patient if fatigued appearing but in NAD, AFVSS. Appears clinically dry. Calcium 8.5 stable from labs this afternoon. LFTs demonstrate slight increasing trend from this afternoon. INR wnl. B/l duplex negative for DVT. [facility] preliminary read of CTA chest, CT abd/pelvis negative for PE and for IVC thrombus. Otherwise, demonstrates known metastatic disease. Patient feeling improved after IVF hydration. Given no emergent findings at this time reasonable to continue with outpatient management as this time. Findings and plan for follow-up reviewed with patient. Patient agreeable and d/c'd per discharge instructions. Medication Reconcilliation Current Medication List: was personally reviewed by me Blood Pressure Screening Patient's blood pressure: Elevated blood pressure Blood pressure disposition: Referred to PCP Impression Primary Impression: Metastatic disease Additional Impression: Dehydration Scribe Attestation The scribe's documentation has been prepared under my direction and personally reviewed by me in its entirety. I confirm that the note above accurately reflects all work, treatment, procedures, and medical decision making performed by me. Departure Information Dispostion Home / Self-Care Referrals Gianna Martinez M.D. (PCP) Eloy Koehler MD Patient Instructions Bone Metastasis, ED Dehydration, My [facility] Additional Instructions Please follow up with your oncologist, Dr. Vigil, as scheduled for re- evaluation, your PET scan, and weekly labs monitoring. Your evaluation today demonstrated persistence of your metastatic disease on CT scan and a slight increase in your liver function tests but normal synthetic function. The cause of your low-grade fever is unclear at this time but may be due to your metastatic disease. Otherwise, your exam, EKG, lab results, ultrasound of your legs, CT of your chest and abdomen did not show signs of an emergent condition at this time. Continue your current medications as prescribed. Drink plenty of fluids to ensure hydration. Return to the emergency department for worsening symptoms as described in the accompanying instructions. Problem Qualifiers
[2017-08-10] MEDS ORDERED: OPTIRAY 320 IV PRN (21:15)
[2017-08-10 21:36] LABS: HEMATOCRIT 30.4 % (37-47); HEMOGLOBIN 10.4 g/dL (12.0-16.0); MEAN CELL VOLUME 84.2 fL (80-100); MEAN CORPUSCULAR HEMOGLOBIN 28.8 pg (25-34); MEAN CORPUSCULAR HGB CONC 34.2 g/dl (32-36); MEAN PLATELET VOLUME 9.1 fL (7.4-10.4); PLATELET COUNT 128 K/uL (130-400); RED CELL DISTRIBUTION WIDTH CV 13.8 % (11.5-14.5); RED CELL DISTRIBUTION WIDTH SD 42.3 fL (36.4-46.3); WHITE BLOOD COUNT 7.34 K/uL (4.8-10.8)
--- NOTE | 2017-08-10 21:45 | DIAGNOSTIC IMAGING REPORT ---
CHEST ONE VIEW PORTABLE CLINICAL HISTORY: ABDOMINAL PAIN/GI fever COMPARISON STUDY: 08/06/2017 FINDINGS: Slightly improved bibasilar parenchymal infiltrates. Improved aeration right base. General left basilar infiltrate compared to the prior exam. Upper lungs are clear. IMPRESSION: Slightly improved basilar parenchymal infiltrates. The above report was generated using voice recognition software. It may contain grammatical, syntax or spelling errors. Electronically signed by: Suresh Angel M.D. 08/10/2017 9:44 PM Dictated Date/Time: 08/10/2017 9:43 PM
[2017-08-10 21:54] LABS: ALBUMIN 3.3 gm/dl (3.4-5.0); ALT/SGPT 88 U/L (12-78); AST/SGOT 192 U/L (15-37); BLOOD UREA NITROGEN 15 mg/dl (7-18); CALCIUM 8.5 mg/dl (8.5-10.1); CARBON DIOXIDE 24 mmol/L (21-32); CREATININE 1.01 mg/dl (0.60-1.20); GLUCOSE 121 mg/dl (70-99); POTASSIUM 3.8 mmol/L (3.5-5.1); SODIUM 139 mmol/L (136-145)
[2017-08-10 21:58] LABS: ALKALINE PHOSPHATASE 230 U/L (45-117); LIPASE 247 U/L (73-393); PHOSPHORUS 1.8 mg/dl (2.5-4.9); TOTAL PROTEIN 7.2 gm/dl (6.4-8.2)
[2017-08-10 22:03] LABS: BASO ABS # 0.07 K/uL (0-0.2); EOS % 1.8 %; EOS ABS # 0.13 K/uL (0-0.5); IG# 0.39 K/uL (0.00-0.02); LYMPH % 31.1 %; LYMPH ABS # 2.28 K/uL (1.2-3.4); MONO % 5.6 %; MONO ABS # 0.41 K/uL (0.11-0.59); NEUT % 55.2 %; NEUT ABS # 4.06 K/uL (1.4-6.5)
[2017-08-10 22:07] LABS: INFLUENZA A PCR Neg for Influ A (NEG); INFLUENZA B PCR Neg for Influ B (NEG)
--- NOTE | 2017-08-10 22:37 | DIAGNOSTIC IMAGING REPORT ---
VENOUS DOPPLER LWR EXT BILA HISTORY: Pain. Edema. metstatic disease, cp/sob/leg swelling COMPARISON STUDY: None. FINDINGS: There is normal compressibility, flow, and augmentation within the bilateral lower extremity deep venous systems. IMPRESSION: No DVT within the right or left lower extremity. The above report was generated using voice recognition software. It may contain grammatical, syntax or spelling errors. Electronically signed by: Suresh Angel M.D. 08/10/2017 10:36 PM Dictated Date/Time: 08/10/2017 10:35 PM
[2017-08-11 00:06] VITALS: TEMP 37
[2017-08-11 01:08] VITALS: BP 156/95; PULSE 90; O2SAT 91
--- NOTE | 2017-08-11 07:07 | DIAGNOSTIC IMAGING REPORT ---
ABDOMEN AND PELVIS CT WITH IV CONTRAST CT DOSE: 543.59 mGy.cm HISTORY: Acute generalized abdominal pain with history of metastatic disease metstatic disease, cp/sob/leg swelling TECHNIQUE: Multiaxial CT images of the abdomen and pelvis were performed following the use of intravenous contrast. A dose lowering technique was utilized adhering to the principles of ALARA. COMPARISON STUDY: CTA of the chest of same day, PET CT 07/27/2017. FINDINGS: Mild subsegmental bibasilar atelectasis/scarring with trace bilateral pleural effusions. Mild mosaic attenuation suggests associated air trapping. Calcified granuloma of the right lower lobe. 2 mm solid nodule right lower lobe as seen on image 8 series 6. There is no pneumatosis or pneumoperitoneum identified. Imaged inferior cardiac chambers are unremarkable with trace pericardial effusion. Heterogeneous appearance of the liver with multiple hepatic mass lesions redemonstrated. Heterogeneity of the posterior right hepatic lobe measuring up to 6.6 cm suggests focal hepatic mass lesion with areas of central low attenuation suggesting central process. This correlate with an FDG avid lesion on comparison PET CT. Moderate periportal edema. Prior cholecystectomy. Spleen, pancreas and adrenal glands are within normal limits. Kidneys, ureters and bladder are unremarkable. Surgically absent uterus. Mild volume of abdominal and pelvic ascites with mild central mesenteric edema. No aortic aneurysm. Mild distention of the IVC, likely secondary to overhydration. Retroaortic left renal vein. Patent portal vein. Prominent 1.4 x 0.9 cm retroperitoneal lymph node of the upper abdomen on image 133 series 6 is unchanged correlating with mildly FDG avid lymph node on comparison PET CT. Aortocaval lymph nodes measure up to 7 mm in short axis, indeterminate. There is no bowel obstruction or focal bowel wall thickening identified. Moderate stool volume suggests constipation. Visualized appendix appears unremarkable. Mild body wall edema. Diffuse osteolytic metastasis throughout the imaged bony structures. Lytic lesion involving the posterior aspect of the T11 vertebral body causes mild mass effect on the adjacent central canal with resultant mild central canal narrowing. Lytic lesions are seen. The ribs, pelvis and imaged femora. No definite pathologic fracture. IMPRESSION: 1. No acute intra-abdominal or intrapelvic abnormality identified. 2. Diffuse osteolytic metastasis throughout the imaged axial and appendicular skeletal system without pathologic fracture identified. Lytic metastatic lesion of the posterior aspect T11 vertebral body causes mass effect upon the adjacent thecal sac resulting in mild central canal narrowing. 3. Trace bilateral pleural effusions and pericardial effusion with mild abdominal and pelvic ascites, periportal edema and mild body wall edema suggests fluid overload. 4. Multiple hepatic lesions throughout the liver again seen suggesting hepatic metastasis. 5. Unchanged mildly prominent retroperitoneal lymph node of the upper abdomen which demonstrated mild metabolic activity on comparison PET CT. 6. Additional findings as above. Electronically signed by: South Das M.D. 08/11/2017 7:05 AM Dictated Date/Time: 08/11/2017 6:55 AM
--- NOTE | 2017-08-11 08:03 | DIAGNOSTIC IMAGING REPORT ---
CHEST CTA for PULMONARY ARTERIES CT DOSE: HISTORY: Atypical chest pain. TECHNIQUE: Multiaxial CT images of the chest were performed following the intravenous administration of contrast to evaluate the pulmonary arteries. Maximal intensity projection images were also obtained. A dose lowering technique was utilized adhering to the principles of ALARA. COMPARISON STUDY: Chest CT 01/22/2015. PET CT 07/27/2017. FINDINGS: Trace pericardial effusion. Trace right pleural effusion. Small left pleural effusion. Aneurysmal dilatation of the ascending thoracic aorta measures up to 4.4 cm. This remains unchanged. No evidence for an aortic dissection. No evidence for pulmonary blood. Hepatic masses are better appreciated on the same day abdominal CT. Mildly enlarged right hilar and subcarinal lymph nodes. Stable prominent right axillary lymph node. Diffuse osteolytic metastatic disease is again noted. A few healing pathologic left lateral rib fractures. The T10 and T11 lytic lesions demonstrate breakthrough through the posterior cortex of the vertebral bodies and epidural extension. This results in mild impression upon the thecal sac. The central airways are patent. No pneumothorax. Mosaic attenuation within the lungs suggestive of air trapping. Bibasilar linear densities. IMPRESSION: 1. No evidence for pulmonary embolus. 2. Stable mild aneurysmal dilatation of the ascending thoracic aorta measuring up to 4.4 cm. No evidence for dissection. 3. Small left pleural effusion, trace right pleural effusion, and trace pericardial effusion. 4. Mosaic attenuation within the lungs suggestive of air trapping. 5. Diffuse osteolytic metastatic disease is again noted. The T10 and T11 lytic lesions demonstrate cortical breakthrough through the posterior cortex with epidural involvement and mild central canal narrowing. 6. Bibasilar linear densities suggestive of atelectasis. 7. Additional findings as described above. Electronically signed by: Eric Clements M.D. 08/11/2017 8:01 AM Dictated Date/Time: 08/11/2017 7:51 AM
== END 2017-08-11 01:09 | disposition home or self-care (01) ==
LOC: C.EDB 20:27 → C.EDC 08-11 01:09
DX: C7A.8 Other malignant neuroendocrine tumors (principal); E86.0 Dehydration; Z85.3 Personal history of malignant neoplasm of breast; Z90.710 Acquired absence of both cervix and uterus; Z90.722 Acquired absence of ovaries, bilateral; Z79.899 Other long term (current) drug therapy

== ENCOUNTER 2017-08-29 17:01 | Emergency (ER) | payer OTHER ==
[~2017-08-29] VITALS: Ht 160 cm; Wt 55.0 kg
[2017-08-29 17:06] VITALS: TEMP 36.9
[2017-08-29] MEDS ORDERED: SODIUM CHLORIDE 0.9% 1000ML 1,000 ML IV STA (17:18)
[2017-08-29] MEDS ORDERED: ADENOSINE IV SOLN 3 MG/ML 2 ML VIAL ONE (17:18)
[2017-08-29] MEDS ORDERED: ADENOSINE IV SOLN 3 MG/ML 2 ML VIAL IV STA (17:18)
[2017-08-29 17:31] VITALS: O2SAT 97; Ht 160 cm; Wt 55.0 kg
[2017-08-29 17:35] LABS: HEMATOCRIT 35.2 % (37-47); HEMOGLOBIN 12.1 g/dL (12.0-16.0); MEAN CELL VOLUME 85.9 fL (80-100); MEAN CORPUSCULAR HEMOGLOBIN 29.5 pg (25-34); MEAN CORPUSCULAR HGB CONC 34.4 g/dl (32-36); MEAN PLATELET VOLUME 9.2 fL (7.4-10.4); NUCLEATED RED BLOOD CELL ABS 0.09 K/uL (0-0); PLATELET COUNT 104 K/uL (130-400); RED CELL DISTRIBUTION WIDTH CV 14.7 % (11.5-14.5); RED CELL DISTRIBUTION WIDTH SD 44.8 fL (36.4-46.3); WHITE BLOOD COUNT 11.25 K/uL (4.8-10.8)
--- NOTE | 2017-08-29 17:38 | DIAGNOSTIC IMAGING REPORT ---
CHEST ONE VIEW PORTABLE CLINICAL HISTORY: EVALUATE ALTERED MENTAL STATUS/WEAKNESS COMPARISON STUDY: Chest radiograph and chest CT August 10, 2017. FINDINGS: There is no pneumothorax or pleural the effusion. No consolidation is identified and there is no evidence for pulmonary edema. Several left-sided rib fractures are noted. These may reflect pathologic fractures and are better depicted on prior chest CT. Osseous lesions shown on prior chest CT are better depicted on that exam. Cardiomediastinal silhouette is stable. IMPRESSION: 1. No acute cardiopulmonary findings. 2. Diffuse skeletal metastases, better depicted on prior chest CT. Electronically signed by: Levi Ny M.D. 08/29/2017 5:37 PM Dictated Date/Time: 08/29/2017 5:34 PM
[2017-08-29 17:43] LABS: INR 1.1 (0.9-1.1); PTT PATIENT 28.8 SECONDS (21.0-31.0)
[2017-08-29 18:12] LABS: ALBUMIN 3.6 gm/dl (3.4-5.0); ALKALINE PHOSPHATASE 255 U/L (45-117); ALT/SGPT 45 U/L (12-78); AST/SGOT 308 U/L (15-37); BLOOD UREA NITROGEN 19 mg/dl (7-18); CALCIUM 8.3 mg/dl (8.5-10.1); CARBON DIOXIDE 24 mmol/L (21-32); CKMB < 0.5 ng/ml (0.5-3.6); CREATININE 1.05 mg/dl (0.60-1.20); GLUCOSE 129 mg/dl (70-99); POTASSIUM 5.4 mmol/L (3.5-5.1); SODIUM 135 mmol/L (136-145); TOTAL PROTEIN 8.6 gm/dl (6.4-8.2)
[2017-08-29 18:29] LABS: BASO % 0.7 %; BASO ABS # 0.08 K/uL (0-0.2); EOS ABS # 0.11 K/uL (0-0.5); IG# 0.31 K/uL (0.00-0.02); LYMPH % 45.9 %; LYMPH ABS # 5.16 K/uL (1.2-3.4); MONO ABS # 0.67 K/uL (0.11-0.59); NEUT % 43.6 %; NEUT ABS # 4.92 K/uL (1.4-6.5)
[2017-08-29] MEDS ORDERED: POLY335019 PO (18:35)
[2017-08-29] MEDS ORDERED: LEVO50TA PO (18:35)
[2017-08-29] MEDS ORDERED: DENOINJ SQ (18:35)
[2017-08-29] MEDS ORDERED: SENN-61 PO (18:35)
[2017-08-29] MEDS ORDERED: [UNRECOGNIZED DRUG - CODE] SQ (18:35)
[2017-08-29] MEDS ORDERED: MONT1TAB3 PO (18:35)
[2017-08-29] MEDS ORDERED: LIOT25TA10 PO (18:35)
[2017-08-29] MEDS ORDERED: ASCO500T16 PO (18:35)
[2017-08-29] MEDS ORDERED: OXYC1TAB3 PO (18:35)
[2017-08-29] MEDS ORDERED: METO25TA3 PO ×2 (19:17→19:22)
--- NOTE | 2017-08-29 19:34 | EMERGENCY ROOM VISIT NOTE ---
History Report prepared by Nancy: Maria Antonia Hardwick Under the Supervision of: Dr. Willem Stallings D.O. First contact with patient: 17:09 Chief Complaint: TACHYCARDIA Stated Complaint: WEAKNESS, PAIN History of Present Illness The patient is a 57 year old female who presents to the Emergency Room with complaints of persistent tachycardia starting 1.5 hours ago. The patient woke up from the nap and found that her pulse was 170. She has never had this before. She feels SOB, but notes that she is always SOB. She is a cancer patient. She had her first treatment last week. She is not on chemo. She had a fever yesterday which broke this morning. She was starting to feel better today before the tachycardia started. She has a history of hypercalcemia. She denies any history of heart problems. She denies any nausea, vomiting, or diarrhea. Source of History: patient Onset: 1.5 hours ago Position: chest Quality: other (tachycardia) Timing: other (persistent) Associated Symptoms: + fevers, + SOB, No nausea, No vomiting, No diarrhea Review of Systems See HPI for pertinent positives & negatives. A total of 10 systems reviewed and were otherwise negative. Past Medical & Surgical Medical Problems: (1) Dysmenorrhea (2) Salpingo-oophorectomy (3) severe hypercalcemia (4) Total abdominal hysterectomy Family History Heart disease Social History Smoking Status: Never Smoker Alcohol Use: occasionally Marital Status: Housing Status: lives with significant other Occupation Status: unemployed Current/Historical Medications Scheduled Ascorbic Acid (Ascorbic Acid), 500 MG PO DAILY Denosumab (Xgeva), 1 DOSE SQ MONTHLY Fish Oil (Butler-3), 1 CAP PO DAILY Levothyroxine Sodium (Synthroid), 50 MCG PO DAILY Liothyronine Sodium (Cytomel), 12.5 MG PO DAILY Magnesium Gluconate (Magnesium Gluconate), 1 TAB PO DAILY Metoprolol Succ (Toprol Xl) (Toprol-Xl), 25 MG PO HS Montelukast Sodium (Singulair), 10 MG PO DAILY Multivitamin (Multivitamin), 1 TAB PO DAILY Octreotide Acetate (Sandostatin [place]), 1 DOSE SQ MONTHLY [allergy shots], DIRECTED Scheduled PRN Oxycodone Ir (Roxicodone Ir), 5 MG PO Q4H PRN for Severe Pain Polyethylene Glycol 3350 (Miralax), 17 GM PO DAILY PRN for Constipation Senna (Senokot), 1 TAB PO UD PRN for Constipation Allergies Coded Allergies: No Known Allergies (Unverified , 08/29/17) Physical Exam Vital Signs Date Time Temp Pulse Resp B/P (MAP) Pulse Ox O2 Delivery O2 Flow Rate FiO2 08/29/17 19:39 89 16 131/74 93 08/29/17 18:33 89 16 134/91 98 Room Air 08/29/17 17:31 97 Room Air 08/29/17 17:31 97 Room Air 08/29/17 17:28 97 08/29/17 17:06 36.9 175 20 119/84 97 Room Air Physical Exam GENERAL: Patient is awake, alert, somewhat anxious appearing, but comfortable. EYES: The conjunctivae are clear. The pupils are round and reactive. EARS, NOSE, MOUTH AND THROAT: The nose is without any evidence of any deformity. Mucous membranes are moist tongue is midline NECK: The neck is nontender and supple. RESPIRATORY: Normal respiratory effort is noted there is no evidence of wheezing rhonchi or rales CARDIOVASCULAR: Tachycardic and regular, no definite murmurs. GASTROINTESTINAL: The abdomen is soft. Bowel sounds are present in all quadrants. Abdomen is nontender MUSCULOSKELETAL/EXTREMITIES: There is no evidence of gross deformity full range of motion is noted in the hips and shoulders SKIN: There is no obvious evidence of any rash. There are no petechiae, pallor or cyanosis noted. NEUROLOGIC: Patient is awake alert and oriented x3 strength is symmetric patellar reflexes are 2+ bilaterally Medical Decision & Procedures ER Provider Diagnostic Interpretation: X-ray results as stated below per interpretation by me and the radiologist. CHEST ONE VIEW PORTABLE CLINICAL HISTORY: EVALUATE ALTERED MENTAL STATUS/WEAKNESS COMPARISON STUDY: Chest radiograph and chest CT August 10, 2017. FINDINGS: There is no pneumothorax or pleural the effusion. No consolidation is identified and there is no evidence for pulmonary edema. Several left-sided rib fractures are noted. These may reflect pathologic fractures and are better depicted on prior chest CT. Osseous lesions shown on prior chest CT are better depicted on that exam. Cardiomediastinal silhouette is stable. IMPRESSION: 1. No acute cardiopulmonary findings. 2. Diffuse skeletal metastases, better depicted on prior chest CT. Electronically signed by: Levi Ny M.D. 08/29/2017 5:37 PM Dictated Date/Time: 08/29/2017 5:34 PM Laboratory Results 08/29/17 17:20 Red Blood Count 4.10, Mean Corpuscular Volume 85.9, Mean Corpuscular Hemoglobin 29.5, Mean Corpuscular Hemoglobin Concent 34.4, Mean Platelet Volume 9.2, Neutrophils (%) (Auto) 43.6, Lymphocytes (%) (Auto) 45.9, Monocytes (%) (Auto) 6.0, Eosinophils (%) (Auto) 1.0, Basophils (%) (Auto) 0.7, Neutrophils # (Auto) 4.92, Lymphocytes # (Auto) 5.16, Monocytes # (Auto) 0.67, Eosinophils # (Auto) 0.11, Basophils # (Auto) 0.08 08/29/17 17:20 Test 08/29/17 17:20 08/29/17 18:45 White Blood Count 11.25 K/uL (4.8-10.8) Red Blood Count 4.10 M/uL (4.2-5.4) Hemoglobin 12.1 g/dL (12.0-16.0) Hematocrit 35.2 % (37-47) Mean Corpuscular Volume 85.9 fL (80-100) Mean Corpuscular Hemoglobin 29.5 pg (25-34) Mean Corpuscular Hemoglobin Concent 34.4 g/dl (32-36) Platelet Count 104 K/uL (130-400) Mean Platelet Volume 9.2 fL (7.4-10.4) Neutrophils (%) (Auto) 43.6 % Lymphocytes (%) (Auto) 45.9 % Monocytes (%) (Auto) 6.0 % Eosinophils (%) (Auto) 1.0 % Basophils (%) (Auto) 0.7 % Neutrophils # (Auto) 4.92 K/uL (1.4-6.5) Lymphocytes # (Auto) 5.16 K/uL (1.2-3.4) Monocytes # (Auto) 0.67 K/uL (0.11-0.59) Eosinophils # (Auto) 0.11 K/uL (0-0.5) Basophils # (Auto) 0.08 K/uL (0-0.2) RDW Standard Deviation 44.8 fL (36.4-46.3) RDW Coefficient of Variation 14.7 % (11.5-14.5) Immature Granulocyte % (Auto) 2.8 % Immature Granulocyte # (Auto) 0.31 K/uL (0.00-0.02) Nucleated RBC Absolute Count (auto) 0.09 K/uL (0-0) Nucleated Red Blood Cells % 0.8 % Smudge Cells PRESENT Dohle Bodies 1+ Prothrombin Time 11.1 SECONDS (9.0-12.0) Prothromb Time International Ratio 1.1 (0.9-1.1) Activated Partial Thromboplast Time 28.8 SECONDS (21.0-31.0) Partial Thromboplastin Ratio 1.1 Anion Gap 6.0 mmol/L (3-11) Est Creatinine Clear Calc Drug Dose 47.7 ml/min Estimated GFR () 67.3 Estimated GFR (Non- 58.1 BUN/Creatinine Ratio 17.6 (10-20) Calcium Level 8.3 mg/dl (8.5-10.1) Magnesium Level 2.7 mg/dl (1.8-2.4) Total Bilirubin 1.1 mg/dl (0.2-1) Direct Bilirubin 0.4 mg/dl (0-0.2) Aspartate Amino Transf (AST/SGOT) 308 U/L (15-37) Alanine Aminotransferase (ALT/SGPT) 45 U/L (12-78) Alkaline Phosphatase 255 U/L (45-117) Total Creatine Kinase 760 U/L (26-192) Creatine Kinase MB < 0.5 ng/ml (0.5-3.6) Creatine Kinase MB Ratio (0-3.0) Troponin I < 0.015 ng/ml (0-0.045) Total Protein 8.6 gm/dl (6.4-8.2) Albumin 3.6 gm/dl (3.4-5.0) Thyroid Stimulating Hormone (TSH) 0.179 uIu/ml (0.300-4.500) Free Thyroxine 0.92 ng/dl (0.80-1.60) Urine Color YELLOW Urine Appearance CLEAR (CLEAR) Urine pH 6.0 (4.5-7.5) Urine Specific [place] 1.007 (1.000-1.030) Urine Protein NEG (NEG) Urine Glucose (UA) NEG (NEG) Urine Ketones NEG (NEG) Urine Occult Blood NEG (NEG) Urine Nitrite NEG (NEG) Urine Bilirubin NEG (NEG) Urine Urobilinogen NEG (NEG) Urine Leukocyte Esterase TRACE (NEG) Urine WBC (Auto) 1-5 /hpf (0-5) Urine RBC (Auto) 0-4 /hpf (0-4) Urine Hyaline Casts (Auto) 1-5 /lpf (0-5) Urine Epithelial Cells (Auto) 20-30 /lpf (0-5) Urine Bacteria (Auto) NEG (NEG) Laboratory results per my review. Medications Administered Medications (Trade) Dose Ordered Sig/Kael Route Start Time Stop Time Status Last Admin Dose Admin Sodium Chloride 1,000 ml @ 999 mls/hr Q1H1M STAT IV 08/29/17 17:18 08/29/17 18:19 DC 08/29/17 17:30 999 MLS/HR Adenosine (Adenosine Iv) 6 mg NOW STAT IV 08/29/17 17:18 08/29/17 17:19 DC 08/29/17 17:28 6 MG ECG Per My Interpretation Indication: tachycardia Rate (beats per minute): 173 Rhythm: SVT Findings: no ectopy, other (no acute ST segment abnormality) Comparison ECG Date: 10-Aug-2017 Change: Changes are new. ED Course 1714: The patient was evaluated in room A12B. A complete history and physical examination were performed. 1718: Adenosine 6 mg IV, NSS 1,000 ml @ 999 mls/hr IV. 1725: Repeat EKG per my interpretation shows normal sinus rhythm, rate 98, no ectopy, no acute ST segment abnormality, increased rate otherwise no change from 10-Aug-2017. 181: I reevaluated the patient. She is feeling fine. 190: I reevaluated the patient. I updated her on the results. 1913: I discussed the patient's case with Dr. Duarte, [facility] cardiology. He recommends outpatient follow up with cardiology and starting Toprol XL at night. 1918: Upon reevaluation, the patient is resting comfortably. I discussed the results and treatment plan with her. She verbalized agreement of the treatment plan. She was discharged home. Medical Decision Prior records/ancillary studies reviewed. Triage Nursing notes reviewed. The patient's history was concerning for palpitations. Differential diagnosis: Etiologies such as premature contractions, electrolyte abnormality, cardiac dysrhythmia, thyroid dysfunction, pulmonary embolism, infection, gastrointestinal, as well as others were entertained. The patient is a 57-year-old female who presented to the emergency department for palpitations. The patient was found to have SVT upon arrival. Initially Valsalva maneuvers were attempted but they were not successful in breaking the patient's dysrhythmia. She was given adenosine with good resolution of her symptoms. She was further treated with IV fluids. I discussed the patient's laboratory and radiographic studies with her. She was found to have an elevated potassium as well as hypocalcemia. The patient was recently treated for hypercalcemia. I do not feel that we should replace his electrolyte at this time at the patient has been asymptomatic since the adenosine was given. I discussed her case with the on-call [facility] desktop publishing specialist. She was encouraged to follow-up with cardiology this week for reevaluation. She was also started on a low-dose of beta-swapnil at the request of the desktop publishing specialist. She was also encouraged to continue all other medications as prescribed and return to the emergency department immediately if symptoms change worsen or the need arises. She was also given discharge information on Valsalva maneuver. Medication Reconcilliation Current Medication List: was personally reviewed by me Blood Pressure Screening Patient's blood pressure: Normal blood pressure Blood pressure disposition: Did not require urgent referral Consults Time Called: 1907 Consulting Physician: Dr. Duarte, [facility] cardiology Returned Call: 1913 I discussed the patient's case with him. He recommends outpatient follow up with cardiology and starting Toprol XL at night. Impression Primary Impression: Palpitations Additional Impression: SVT (supraventricular tachycardia) Scribe Attestation The scribe's documentation has been prepared under my direction and personally reviewed by me in its entirety. I confirm that the note above accurately reflects all work, treatment, procedures, and medical decision making performed by me. Departure Information Dispostion Home / Self-Care Prescriptions Metoprolol Succ (Toprol Xl) (Toprol-Xl) 25 Mg Tabcr 25 MG PO HS, #30 TAB Prov: Willem Stallings, DO 08/29/17 Referrals Nicholas Jackson MD O'Donnell, Sean B., MD Forms HOME CARE DOCUMENTATION FORM, IMPORTANT VISIT INFORMATION, WORK / SCHOOL INSTRUCTIONS Patient Instructions ED Tachycardia Pat PSVT, ED Valsalva Maneuver, My [facility] Additional Instructions Continue all medications as prescribed. Rest and avoid any strenuous activity. Call to schedule a follow-up appointment with the [facility] cardiology group this week. Return to the emergency department immediately if symptoms change worsen or the need arises. Problem Qualifiers
[2017-08-29 19:39] VITALS: BP 131/74; PULSE 89; O2SAT 93
== END 2017-08-29 19:41 | disposition home or self-care (01) ==
LOC: C.EDB 17:02 → C.EDA 19:41
DX: R00.2 Palpitations (principal); I47.1 Supraventricular tachycardia; Z90.710 Acquired absence of both cervix and uterus; Z90.722 Acquired absence of ovaries, bilateral; Z90.79 Acquired absence of other genital organ(s); Z79.899 Other long term (current) drug therapy

== ENCOUNTER → 2017-10-28 | Outpatient (CLI) | payer OTHER ==
[~2017-10-28] MED LIST changes: -ASCO10003 PO; +ASCO500T16 PO; +CYTM5 PO; +DENOINJ SQ; -FLUO10CA15 PO; +FMR25 PO; +FNTTP25 TOP; +FRS/40 PO; +FURO40TA3 PO; -LEVO100T PO; +LEVO50TA PO; +LIOT25TA10 PO; -LIOT5TAB PO; -MAGN500T3 PO; +MONT1TAB3 PO; +OXYC-164 PO; +POLY335019 PO; +SENN-61 PO; -SNG10 PO; +SPIR25TA PO; +[UNRECOGNIZED DRUG - CODE] SQ
--- NOTE | 2017-10-28 15:01 | DIAGNOSTIC IMAGING REPORT ---
CHEST 2 VIEWS ROUTINE CLINICAL HISTORY: MALIGNANT NEUROENDOCRINE TUMOR, ASTHMATIC COMPARISON STUDY: 09/06/2017 FINDINGS: The heart is borderline enlarged. There is mild diffuse interstitial thickening. There are bilateral infrahilar opacities likely atelectatic. There are no significant pleural effusions.[ There is a midthoracic compression deformity. There are suspected osteolytic skeletal lesions. IMPRESSION: 1. Stable interstitial thickening. Bilateral lower lung zone opacities likely atelectatic. Electronically signed by: Trevor Quinones M.D. 10/28/2017 3:00 PM Dictated Date/Time: 10/28/2017 2:58 PM
== END | disposition home or self-care (01) ==
LOC: C.RAD 14:32
PROVIDERS: ATTEND Nurse Practitioner Family
DX: C7A.019 Malignant carcinoid tumor of the small intestine, unspecified portion (principal)

== ENCOUNTER → 2017-10-28 | Outpatient (CLI) | payer OTHER ==
[2017-10-28 14:23] LABS: HEMATOCRIT 28.2 % (37-47); HEMOGLOBIN 9.1 g/dL (12.0-16.0); MEAN CORPUSCULAR HEMOGLOBIN 30.3 pg (25-34); MEAN CORPUSCULAR HGB CONC 32.3 g/dl (32-36); NUCLEATED RED BLOOD CELL ABS 0.69 K/uL (0-0); RED CELL DISTRIBUTION WIDTH CV 24.8 % (11.5-14.5); RED CELL DISTRIBUTION WIDTH SD 81.3 fL (36.4-46.3); WHITE BLOOD COUNT 9.33 K/uL (4.8-10.8)
[2017-10-28 15:21] LABS: MEAN PLATELET VOLUME 10.2 fL (7.4-10.4); PLATELET COUNT 79 K/uL (130-400)
[2017-10-28 16:05] LABS: ALKALINE PHOSPHATASE 287 U/L (45-117); ALT/SGPT 41 U/L (12-78); AST/SGOT 167 U/L (15-37); BLOOD UREA NITROGEN 9 mg/dl (7-18); CALCIUM 7.3 mg/dl (8.5-10.1); CARBON DIOXIDE 19 mmol/L (21-32); CREATININE 0.69 mg/dl (0.60-1.20); GLUCOSE 99 mg/dl (70-99); POTASSIUM 4.1 mmol/L (3.5-5.1); SODIUM 137 mmol/L (136-145); TOTAL PROTEIN 7.2 gm/dl (6.4-8.2)
== END | disposition home or self-care (01) ==
LOC: C.LABSPEC 13:59
PROVIDERS: ATTEND Internal Medicine Hematology & Oncology
DX: C7A.019 Malignant carcinoid tumor of the small intestine, unspecified portion (principal)

== ENCOUNTER → 2017-10-29 | Outpatient (CLI) | payer OTHER ==
--- NOTE | 2017-10-29 12:12 | DIAGNOSTIC IMAGING REPORT ---
ABDOMEN COMPLETE (US) HISTORY: Pain. Ascites. ASCITES. COMPARISON: 07/20/2017 CT 08/10/2017 FINDINGS: Pancreas: The pancreas demonstrates a normal echotexture. Liver: Multiple hypoechoic nodules in the left hepatic lobe measuring up to 1.6 cm. These are progressive compared to the prior exam. Unchanged 1.5 cm hyperechoic nodule of the right hepatic lobe. Trace amount of ascites in a perihepatic location. Gallbladder: Surgically removed CBD: 2 mm Kidneys: No hydronephrosis. Spleen: Maximum dimension 11 cm. Uniform internal echogenicity Aorta: Normal in caliber. IVC: Patent. IMPRESSION: 1. Multiple hepatic nodules considered at least mildly progressive compared to the patient's prior 2. Small amount of perihepatic ascites. 3. Mild splenomegaly. 4. The appearance suggests the possibility of mildly progressive metastatic change. The above report was generated using voice recognition software. It may contain grammatical, syntax or spelling errors. Electronically signed by: Suresh Angel M.D. 10/29/2017 12:10 PM Dictated Date/Time: 10/29/2017 12:05 PM
== END | disposition home or self-care (01) ==
LOC: C.ULTR 10:51
PROVIDERS: ATTEND Nurse Practitioner Family
DX: C41.2 Malignant neoplasm of vertebral column (principal); D49.0 Neoplasm of unspecified behavior of digestive system; K76.9 Liver disease, unspecified

== ENCOUNTER 2017-11-01 16:46 | Emergency (ER) | payer OTHER ==
[~2017-11-01] VITALS: Ht 161.3 cm; Wt 57.1 kg
[~2017-11-01 16:46] MED LIST changes: -CYTM5 PO; -FMR25 PO; -FNTTP25 TOP; -FRS/40 PO; -FURO40TA3 PO; -SPIR25TA PO
[2017-11-01 16:50] VITALS: TEMP 36.9; Ht 161.3 cm; Wt 57.1 kg
[2017-11-01] MEDS ORDERED: ALBUT/IPRATROP 3MG/0.5MG NEB 3 ML VIAL INH STA (17:18)
--- NOTE | 2017-11-01 17:30 | EMERGENCY ROOM VISIT NOTE ---
History Report prepared by Nancy: Grisel Murphy Under the Supervision of: Dr. Noel Baptiste M.D. First contact with patient: 16:57 Chief Complaint: SHORTNESS OF BREATH Stated Complaint: SOB, SWELLING IN LOWER EXTREMITIES History of Present Illness The patient is a 57 year old white female with a past medical history of dysmenorrhea, salpingo-oophorectomy, severe hypercalcemia, total abdominal hysterectomy, and stage IV liver cancer who presents to the ED with a cc of constant bilateral leg swelling beginning 1 week ago. She notes it hurts to walk and the swelling worsens throughout the day. The patient reports she has gained about 6 or 7 lbs since the swelling began. She notes she is keeping her feet propped up and is not taking any diuretics. The patient notes she is experiencing some SOB. She denies any cough, fever, or chills. Her notes she was placed on Metrazol 8 days ago 2.5mg, and attributes her swelling to this as it is a side effect of the medication. She notes she is not receiving chemotherapy or radiation. Source of History: patient, spouse/significant other () Onset: 1 week ago Position: leg (bilateral) Modifying Factors (Worsening): other (walking, worsens as day goes on) Associated Symptoms: + SOB, No fevers, No chills, No cough Note: Associated symptom: gain of 6 or 7 lbs Review of Systems See HPI for pertinent positives and negatives. A total of ten systems were reviewed and were otherwise negative. Past Medical & Surgical Medical Problems: (1) Dysmenorrhea (2) Salpingo-oophorectomy (3) severe hypercalcemia (4) Total abdominal hysterectomy Family History Heart disease Social History Smoking Status: Never Smoker Smokeless Tobacco Use: No Alcohol Use: occasionally Marital Status: Housing Status: lives with significant other Occupation Status: unemployed Current/Historical Medications Scheduled Ascorbic Acid (Ascorbic Acid), 500 MG PO DAILY Denosumab (Xgeva), 1 DOSE SQ MONTHLY Fentanyl (Fentanyl), 25 MCG TOP [id number] Fish Oil ([place]-3), 1 CAP PO DAILY Furosemide (Lasix), 1 TAB PO DAILY Letrozole (Femara), 2.5 MG PO QPM Levothyroxine Sodium (Synthroid), 50 MCG PO DAILY Liothyronine Sodium (Liothyronine Sodium), 5 MCG PO BID Montelukast Sodium (Singulair), 10 MG PO DAILY Multivitamin (Multivitamin), 1 TAB PO DAILY Octreotide Acetate (Sandostatin [place]), 1 DOSE SQ MONTHLY Spironolactone (Aldactone), 1 TAB PO DAILY Scheduled PRN Oxycodone Hcl (Oxycodone Hcl), 10 MG PO Q4-6HRS PRN for Pain Polyethylene Glycol 3350 (Miralax), 17 GM PO DAILY PRN for Constipation Senna (Senokot), 17.2 MG PO BID PRN for Constipation Allergies Uncoded Allergies: dogs and cats (Allergy, Severe, itchy eyes and sneezing, 10/20/17) enviromental (Allergy, Intermediate, sneezing to bronchitis and sthma exaserbates, 10/20/17) Physical Exam Vital Signs Date Time Temp Pulse Resp B/P (MAP) Pulse Ox O2 Delivery O2 Flow Rate FiO2 11/01/17 20:15 108 16 127/74 93 11/01/17 18:12 91 15 133/81 97 11/01/17 17:43 83 11/01/17 17:41 95 Room Air 11/01/17 16:50 36.9 85 20 142/75 97 Room Air Physical Exam GENERAL: Awake, alert, well-appearing, NAD. Thin in appearance HENT: Normocephalic, atraumatic. EYES: Normal conjunctiva. Sclera non-icteric. PERRL. No anisocoria. NECK: Supple. No nuchal rigidity. FROM. RESPIRATORY: CTAB, no rhonchi, wheezing. Crackles throughout. CARDIAC: RRR, no MRG ABDOMEN: Soft, NTND, BS+ MSK: No chest wall TTP. 1 to 2+ pitting edema of bilat LE, very pronounced pedal edema of bilat LE. No calf pain. Negative yair's NEURO: GCS 15, CN 2-12 intact, moves all 4s on command SKIN: No rash or jaundice noted. Medical Decision & Procedures ER Provider Diagnostic Interpretation: Radiology results as stated below per my review and radiologist interpretation: CHEST ONE VIEW PORTABLE CLINICAL HISTORY: EVALUATE RESPIRATORY DISTRESS.DYSPNEA dyspnea COMPARISON STUDY: 10/28/2017 FINDINGS: Interstitial prominence in the mid to lower lung regions bilaterally. Components of this are chronic. Upper lungs are clear. Diaphragms are smooth. IMPRESSION: Basilar interstitial prominence the bulk of which is chronic. Mild bibasilar superimposed interstitial pneumonitis is not excluded. The above report was generated using voice recognition software. It may contain grammatical, syntax or spelling errors. Electronically signed by: Suresh Angel M.D. 11/01/2017 5:38 PM Dictated Date/Time: 11/01/2017 5:38 PM Laboratory Results 11/01/17 17:41 Red Blood Count 2.86, Mean Corpuscular Volume 94.8, Mean Corpuscular Hemoglobin 30.8, Mean Corpuscular Hemoglobin Concent 32.5, Mean Platelet Volume 9.8 11/01/17 17:41 Test 11/01/17 17:41 White Blood Count 9.51 K/uL (4.8-10.8) Red Blood Count 2.86 M/uL (4.2-5.4) Hemoglobin 8.8 g/dL (12.0-16.0) Hematocrit 27.1 % (37-47) Mean Corpuscular Volume 94.8 fL (80-100) Mean Corpuscular Hemoglobin 30.8 pg (25-34) Mean Corpuscular Hemoglobin Concent 32.5 g/dl (32-36) Platelet Count 69 K/uL (130-400) Mean Platelet Volume 9.8 fL (7.4-10.4) RDW Standard Deviation 81.8 fL (36.4-46.3) RDW Coefficient of Variation 24.7 % (11.5-14.5) Nucleated RBC Absolute Count (auto) 0.41 K/uL (0-0) Neutrophils % (Manual) 39.1 % Lymphocytes % (Manual) 50.5 % Monocytes % (Manual) 4.3 % Eosinophils % (Manual) 0.9 % Basophils % (Manual) 0.9 % Metamyelocytes % 1.7 % Myelocytes % 2.6 % Blast Cells % % Nucleated Red Blood Cells % 4.4 % Neutrophils # (Manual) 3.72 K/uL (1.4-6.5) Total Absolute Neutrophils 3.72 K/uL (1.4-6.5) Lymphocytes # (Manual) 4.79 K/uL (1.2-3.4) Total Absolute Lymphocytes 4.79 K/uL (1.2-3.4) Monocytes # (Manual) 0.41 K/uL (0.11-0.59) Eosinophils # (Manual) 0.09 K/uL (0-0.5) Basophils # (Manual) 0.09 K/uL (0-0.2) Metamyelocytes # 0.16 K/uL (0-0) Myelocytes # 0.25 K/uL (0-0) Blast Cells # K/uL (0-0) Polychromasia 1+ Anisocytosis PRESENT Echinocytes 1+ Prothrombin Time 14.0 SECONDS (9.0-12.0) Prothromb Time International Ratio 1.3 (0.9-1.1) Activated Partial Thromboplast Time 31.5 SECONDS (21.0-31.0) Partial Thromboplastin Ratio 1.2 Anion Gap 10.0 mmol/L (3-11) Est Creatinine Clear Calc Drug Dose 72.1 ml/min Estimated GFR () 108.1 Estimated GFR (Non- 93.2 BUN/Creatinine Ratio 21.2 (10-20) Calcium Level 7.6 mg/dl (8.5-10.1) Phosphorus Level 3.0 mg/dl (2.5-4.9) Magnesium Level 2.2 mg/dl (1.8-2.4) Total Bilirubin 1.5 mg/dl (0.2-1) Aspartate Amino Transf (AST/SGOT) 124 U/L (15-37) Alanine Aminotransferase (ALT/SGPT) 33 U/L (12-78) Alkaline Phosphatase 245 U/L (45-117) Troponin I < 0.015 ng/ml (0-0.045) Pro-B-Type Natriuretic Peptide 1107 pg/ml (0-900) Total Protein 6.9 gm/dl (6.4-8.2) Albumin 2.9 gm/dl (3.4-5.0) Globulin 4.0 gm/dl (2.5-4.0) Albumin/Globulin Ratio 0.7 (0.9-2) Laboratory results reviewed by me Medications Administered Medications (Trade) Dose Ordered Sig/Kael Route Start Time Stop Time Status Last Admin Dose Admin Albuterol/ Ipratropium (Duoneb) 3 ml NOW STAT INH 11/01/17 17:18 11/01/17 17:20 DC 11/01/17 17:41 3 ML Furosemide 20 mg/ Syringe 2 ml @ 4 mls/min ONE ONCE IV 11/01/17 19:15 11/01/17 19:16 DC 11/01/17 19:15 4 MLS/MIN ECG Per My Interpretation Indication: SOB/dyspnea Rate (beats per minute): 84 Rhythm: normal sinus Findings: other (normal intervals. left axis deviation) ED Course 1709: The patient was evaluated in room A12. A complete history and physical exam was performed. 1899: I reevaluated and updated the patient. 1930: I reevaluated the patient. Discussed results and discharge instructions: she verbalized understanding and agreement. The patient is ready for discharge. Medical Decision Nursing notes reviewed. Ancillary studies and prior records reviewed. The patient is a 57 year old white female with a past medical history of dysmenorrhea, salpingo-oophorectomy, severe hypercalcemia, total abdominal hysterectomy, and stage IV liver cancer who presents to the ED with a cc of constant bilateral leg swelling beginning 1 week ago. Etiologies such as infections, reactive airway disease, pneumonia, pneumothorax , COPD, CHF, cardiac ischemia, pulmonary embolism, musculoskeletal, gastrointestinal, as well as others were entertained. Patient was seen and evaluated the bedside. Patient was complaining some increasing lower extremity swelling and pain. Patient did have some shortness of breath which is somewhat acute on chronic. The patient does have crackles throughout does have symmetric bilateral lower extremity edema without any calf pain. The patient does have noted stage IV neuroendocrine tumor. The patient has had a recent liver ultrasound was recently started on a new medication. Patient did blood work completed, EKG, troponin, BNP, and chest x-ray. I did review the medication side effects of her new medication. There is a side effect of lower extremity edema. Patient's chest x-ray did not show any overt pulmonary edema or pleural effusions. Given that the patient does not have any asymmetric lower extremity swelling or calf pain I believe this is more likely related to her malignancy and due to possible PE. Heart failure was also entertained however the patient has fairly clear lungs albeit with crackles but no decreased breath sounds at the bases and the patient does not have overt pulmonary edema on chest x-ray. Patient does have some chronic anemia. Patient 's LFTs appear improved from prior. I did do a bedside ultrasound which showed the. Patient had fairly good EF. There may be a trace pericardial effusion but no evidence of tamponade and the patient has stable vital signs. Patient's end point septal separation was essentially negligible and the patient's IVC did have some respiratory variability. The patient's BNP was mildly elevated however I do not believe she is in failure. Patient does have low albumin I believe this is likely unfortunately related to her malignancy. I did briefly speak with the hospitalist in terms of a diuretic regimen to initiate. We will start her on Lasix 40 and Aldactone 25 daily. She was advised to take these in the morning in order to prevent nighttime urination frequency. I did discuss return precautions and follow-up instructions. Patient was also placed in LARA hose. Patient was given strict follow-up, discharge, and return precautions. All questions were answered. Patient was deemed suitable for outpatient follow- up at this time. Patient agreed with the plan of care and was safely discharged home. Medication Reconcilliation Current Medication List: was personally reviewed by me Blood Pressure Screening Patient's blood pressure: Normal blood pressure Blood pressure disposition: Did not require urgent referral Impression Primary Impression: Swelling of lower extremity Additional Impressions: History of neuroendocrine cancer Hypoalbuminemia Scribe Attestation The scribe's documentation has been prepared under my direction and personally reviewed by me in its entirety. I confirm that the note above accurately reflects all work, treatment, procedures, and medical decision making performed by me. Departure Information Dispostion Home / Self-Care Prescriptions Spironolactone (ALDACTONE) 25 Mg Tab 1 TAB PO DAILY for 30 Days, #30 TAB 0 Refills Prov: Noel Baptiste M.D. 11/01/17 Furosemide (LASIX) 40 Mg Tab 1 TAB PO DAILY for 30 Days, #30 TAB 0 Refills Prov: Noel Baptiste M.D. 11/01/17 Referrals Edward Shepherd M.D. (PCP) Forms HOME CARE DOCUMENTATION FORM, IMPORTANT VISIT INFORMATION Patient Instructions ED Leg Swelling Bilateral, My [facility] Additional Instructions Please return to the emergency department if you have worsening or recurrent symptoms not amenable to at-home treatment. Please call for a follow-up appointment with her primary care physician. Please take your medications as prescribed. If you have other concerns and/or complaints please feel free to also call your primary care physician's office or return the ED for further evaluation, management, and treatment. Take your medications as prescribed. You have been examined and treated today on an emergency basis only. This is not a substitute for, or an effort to provide, complete comprehensive medical care. It is impossible to recognize and treat all injuries or illnesses in a single emergency department visit. It is therefore important that you follow up closely with [facility], your PCP, and/or your specialist(s). Call as soon as possible for an appointment. Thank you for your time and consideration. I look forward to speaking with you again soon. Please don't hesitate to call us if you have any questions. Problem Qualifiers
--- NOTE | 2017-11-01 17:40 | DIAGNOSTIC IMAGING REPORT ---
CHEST ONE VIEW PORTABLE CLINICAL HISTORY: EVALUATE RESPIRATORY DISTRESS.DYSPNEA dyspnea COMPARISON STUDY: 10/28/2017 FINDINGS: Interstitial prominence in the mid to lower lung regions bilaterally. Components of this are chronic. Upper lungs are clear. Diaphragms are smooth. IMPRESSION: Basilar interstitial prominence the bulk of which is chronic. Mild bibasilar superimposed interstitial pneumonitis is not excluded. The above report was generated using voice recognition software. It may contain grammatical, syntax or spelling errors. Electronically signed by: Suresh Angel M.D. 11/01/2017 5:38 PM Dictated Date/Time: 11/01/2017 5:38 PM
[2017-11-01 17:41] VITALS: O2SAT 95
[2017-11-01 18:13] LABS: HEMATOCRIT 27.1 % (37-47); HEMOGLOBIN 8.8 g/dL (12.0-16.0); MEAN CELL VOLUME 94.8 fL (80-100); MEAN CORPUSCULAR HEMOGLOBIN 30.8 pg (25-34); MEAN CORPUSCULAR HGB CONC 32.5 g/dl (32-36); NUCLEATED RED BLOOD CELL ABS 0.41 K/uL (0-0); RED CELL DISTRIBUTION WIDTH CV 24.7 % (11.5-14.5); RED CELL DISTRIBUTION WIDTH SD 81.8 fL (36.4-46.3); WHITE BLOOD COUNT 9.51 K/uL (4.8-10.8)
[2017-11-01 18:17] LABS: MEAN PLATELET VOLUME 9.8 fL (7.4-10.4); PLATELET COUNT 69 K/uL (130-400)
[2017-11-01] MEDS ORDERED: FMR25 PO (18:21)
[2017-11-01] MEDS ORDERED: FNTTP25 TOP (18:21)
[2017-11-01] MEDS ORDERED: CYTM5 PO (18:21)
[2017-11-01 18:27] LABS: INR 1.3 (0.9-1.1); PTT PATIENT 31.5 SECONDS (21.0-31.0)
[2017-11-01 18:41] LABS: ALBUMIN 2.9 gm/dl (3.4-5.0); ALKALINE PHOSPHATASE 245 U/L (45-117); ALT/SGPT 33 U/L (12-78); AST/SGOT 124 U/L (15-37); BLOOD UREA NITROGEN 15 mg/dl (7-18); CALCIUM 7.6 mg/dl (8.5-10.1); CARBON DIOXIDE 20 mmol/L (21-32); CREATININE 0.71 mg/dl (0.60-1.20); GLUCOSE 116 mg/dl (70-99); POTASSIUM 3.6 mmol/L (3.5-5.1); SODIUM 138 mmol/L (136-145); TOTAL PROTEIN 6.9 gm/dl (6.4-8.2)
[2017-11-01] MEDS ORDERED: FUROSEMIDE INJ 20 MG in SYRINGE 0 ML IV ONE (19:15)
[2017-11-01] MEDS ORDERED: FURO40TA3 PO (19:17)
[2017-11-01] MEDS ORDERED: SPIR25TA PO (19:17)
[2017-11-01 20:15] VITALS: BP 127/74; PULSE 108; O2SAT 93
== END 2017-11-01 20:15 | disposition home or self-care (01) ==
LOC: C.EDB 16:47 → C.EDA 20:15
DX: R22.43 Localized swelling, mass and lump, lower limb, bilateral (principal); C7A.8 Other malignant neuroendocrine tumors; Z90.710 Acquired absence of both cervix and uterus; Z90.722 Acquired absence of ovaries, bilateral; Z90.79 Acquired absence of other genital organ(s); Z79.899 Other long term (current) drug therapy; Z91.048 Other nonmedicinal substance allergy status; C22.9 Malignant neoplasm of liver, not specified as primary or secondary

== ENCOUNTER 2017-11-08 00:19 | Emergency (ER) | payer OTHER ==
[~2017-11-08] VITALS: Ht 165.1 cm; Wt 55.7 kg
[~2017-11-08 00:19] MED LIST changes: +FNTTP25 TOP; +FURO40TA3 PO; -LIOT25TA10 PO; -MONT1TAB3 PO; -MULT-506 PO; -OXYC-164 PO; -POLY335019 PO; -SENN-61 PO; +SPIR25TA PO; -[UNRECOGNIZED DRUG - CODE] SQ; -allergy shots
[2017-11-08 00:29] VITALS: TEMP 36.5; Ht 165.1 cm; Wt 55.7 kg
[2017-11-08] MEDS ORDERED: SODIUM CHLORIDE 0.9% 500ML 500 ML IV STA (01:00)
[2017-11-08] MEDS ORDERED: OPTIRAY 320 IV PRN (01:15)
[2017-11-08 01:23] LABS: HEMATOCRIT 27.1 % (37-47); HEMOGLOBIN 8.6 g/dL (12.0-16.0); MEAN CELL VOLUME 96.8 fL (80-100); MEAN CORPUSCULAR HEMOGLOBIN 30.7 pg (25-34); MEAN CORPUSCULAR HGB CONC 31.7 g/dl (32-36); NUCLEATED RED BLOOD CELL ABS 0.39 K/uL (0-0); RED CELL DISTRIBUTION WIDTH SD 88.1 fL (36.4-46.3); WHITE BLOOD COUNT 9.74 K/uL (4.8-10.8)
[2017-11-08 01:35] LABS: INR 1.4 (0.9-1.1); PTT PATIENT 32.5 SECONDS (21.0-31.0)
[2017-11-08 01:44] LABS: ALBUMIN 2.7 gm/dl (3.4-5.0); ALKALINE PHOSPHATASE 261 U/L (45-117); ALT/SGPT 36 U/L (12-78); AST/SGOT 126 U/L (15-37); BLOOD UREA NITROGEN 12 mg/dl (7-18); CALCIUM 7.1 mg/dl (8.5-10.1); CARBON DIOXIDE 21 mmol/L (21-32); CKMB < 1.0 ng/ml (0.5-3.6); CREATININE 0.74 mg/dl (0.60-1.20); GLUCOSE 116 mg/dl (70-99); LIPASE 162 U/L (73-393); PHOSPHORUS 2.9 mg/dl (2.5-4.9); POTASSIUM 3.5 mmol/L (3.5-5.1); SODIUM 139 mmol/L (136-145); TOTAL PROTEIN 6.9 gm/dl (6.4-8.2)
[2017-11-08] MEDS ORDERED: FRS/40 PO (01:53)
[2017-11-08] MEDS ORDERED: SPIR25TA PO (01:55)
[2017-11-08 02:23] LABS: MEAN PLATELET VOLUME 10.7 fL (7.4-10.4); PLATELET COUNT 75 K/uL (130-400)
[2017-11-08 02:34] LABS: BASO % 0.8 %; BASO ABS # 0.08 K/uL (0-0.2); EOS % 0.8 %; EOS ABS # 0.08 K/uL (0-0.5); IG# 0.21 K/uL (0.00-0.02); LYMPH ABS # 4.58 K/uL (1.2-3.4); MONO % 7.4 %; MONO ABS # 0.72 K/uL (0.11-0.59); NEUT % 41.8 %; NEUT ABS # 4.07 K/uL (1.4-6.5)
--- NOTE | 2017-11-08 04:00 | EMERGENCY ROOM VISIT NOTE ---
History Report prepared by Nancy: Rolanda Ba Under the Supervision of: Dr. Michael Coello M.D. First contact with patient: 00:53 Chief Complaint: ALTERED MENTAL STATUS Stated Complaint: ALTERED MENTAL STATUS Nursing Triage Summary: PT arrives via EMS pt reports increased lethargy over the last week and feeling nauseated . pt reports hx breast cancer with mets. per EMS provider pt spouse reports pt had AMS earlier today currently pt speec clear and appropriate. states "I think its the lethargy making me talk that way " History of Present Illness The patient is a 57 year old female who presents to the Emergency Room with complaints of an episode of altered mental status starting this evening. The patient's states that the patient has metastatic breast cancer and follows with Dr. Arnold. He reports that for the past 3 days the patient has been having increased pain and since yesterday has been extremely lethargic. He reports that he had to force her to get up at 11 this morning and she went back to sleep an hour later. He states that she has barely eaten all day and hasn't even taken many of her pain medications. He notes that the patient hasn't drank much water and has been taking her Aldactone and Lasix. The patient complains of some abdominal cramping starting tonight and not being able to urinate. The patient denies fever, vomiting, headaches, bleeding, rash, being on hospice, the cancer spreading to her brain, and a history of kidney failure. The patient' s notes that the patient last had a blood transfusion on October 20. Per nursing staff, EMS gave the patient 4 of Zofran due to her nausea in route. Source of History: patient Onset: this evening Quality: other (altered mental status) Timing: other (episode) Modifying Factors (Relieving): other (zofran) Associated Symptoms: + nausea, + abdominal pain, + urinary symptoms, No fevers, No headache, No vomiting, No rash Note: The patient complains of lethargy. The patient denies bleeding. Review of Systems See HPI for pertinent positives & negatives. A total of 10 systems reviewed and were otherwise negative. Past Medical & Surgical Medical Problems: (1) Dysmenorrhea (2) Salpingo-oophorectomy (3) severe hypercalcemia (4) Total abdominal hysterectomy Family History Heart disease Social History Smoking Status: Never Smoker Alcohol Use: occasionally Marital Status: Housing Status: lives with significant other Occupation Status: unemployed Current/Historical Medications Scheduled Ascorbic Acid (Ascorbic Acid), 500 MG PO DAILY Denosumab (Xgeva), 1 DOSE SQ MONTHLY Fentanyl (Fentanyl), 25 MCG TOP CQ72HR Fish Oil (Onia-3), 1 CAP PO DAILY Furosemide (Lasix), 40 MG PO DAILY Letrozole (Femara), 2.5 MG PO QPM Levothyroxine Sodium (Synthroid), 50 MCG PO DAILY Liothyronine Sodium (Liothyronine Sodium), 5 MCG PO BID Montelukast Sodium (Singulair), 10 MG PO DAILY Multivitamin (Multivitamin), 1 TAB PO DAILY Octreotide Acetate (Sandostatin [place]), 1 DOSE SQ MONTHLY Spironolactone (Aldactone), 25 MG PO DAILY Scheduled PRN Oxycodone Hcl (Oxycodone Hcl), 10 MG PO Q4-6HRS PRN for Pain Polyethylene Glycol 3350 (Miralax), 17 GM PO DAILY PRN for Constipation Senna (Senokot), 17.2 MG PO BID PRN for Constipation Allergies Uncoded Allergies: dogs and cats (Allergy, Severe, itchy eyes and sneezing, 10/20/17) enviromental (Allergy, Intermediate, sneezing to bronchitis and sthma exaserbates, 10/20/17) Physical Exam Vital Signs Date Time Temp Pulse Resp B/P (MAP) Pulse Ox O2 Delivery O2 Flow Rate FiO2 11/08/17 04:08 78 18 154/90 92 Room Air 11/08/17 02:34 87 18 143/91 90 Room Air 11/08/17 00:29 36.5 91 20 141/92 96 Room Air Physical Exam GENERAL: Patient is chronically unwell appearing and dehydrated appearing. Mild distress. EYES: No scleral icterus, unremarkable pupils. ENT: Mucous membranes moist, no nasal congestion. NECK: No masses appreciated, no meningismus, trachea is midline. RESPIRATORY: No dyspnea. Clear to auscultation and equal bilaterally. No wheeze , no rhonchi. CARDIOVASCULAR: Regular rate and rhythm. No murmurs, rubs, gallops appreciated. GASTROINTESTINAL: Abdomen soft, no peritonitis. No masses appreciated. Abdomen is distended with vague tenderness in all quadrants. Hypoactive bowel sounds. BACK: No midline tenderness, no CVA tenderness EXTREMITIES: Normal motion all extremities, no cyanosis, no edema. NEUROLOGIC: Alert and oriented, no acute motor or sensory deficits, no focal weakness, cranial nerves grossly intact. SKIN: No rash, no jaundice, no diaphoresis. Medical Decision & Procedures ER Provider Diagnostic Interpretation: My review and interpretation: CHEST X-RAY: The results were interpreted by me. Bilateral perihilar inflammation. Similar to previous chest x-ray from one week ago. No lobar infiltrate. No effusion. Normal cardiac size. Stat Rad Radiology results and stated below per my review and radiologist interpretation: CT HEAD: No acute hemorrhage, hydrocephalus, or mass effect. CT ABDOMEN & PELVIS With Contrast: Multiple low-density lesions are seen in the liver, largest measuring approximately 3.7 cm in the right liver dome concerning for metastasis. Diffuse osseous metastasis. No fractures. Diffuse soft tissue stranding and haziness of the mesentery represent anasarca. No bowel obstruction or bowel thickening. No hydronephrosis. No definite acute findings. Radiologist: Jennifer Gudino MD Laboratory Results 11/08/17 01:10 Red Blood Count 2.80, Mean Corpuscular Volume 96.8, Mean Corpuscular Hemoglobin 30.7, Mean Corpuscular Hemoglobin Concent 31.7, Mean Platelet Volume 10.7, Neutrophils (%) (Auto) 41.8, Lymphocytes (%) (Auto) 47.0, Monocytes (%) (Auto) 7.4, Eosinophils (%) (Auto) 0.8, Basophils (%) (Auto) 0.8, Neutrophils # (Auto) 4.07, Lymphocytes # (Auto) 4.58, Monocytes # (Auto) 0.72, Eosinophils # (Auto) 0.08, Basophils # (Auto) 0.08 11/08/17 01:10 Test 11/08/17 00:00 11/08/17 01:10 Urine Color YELLOW Urine Appearance CLEAR (CLEAR) Urine pH 6.0 (4.5-7.5) Urine Specific Cranks 1.010 (1.000-1.030) Urine Protein NEG (NEG) Urine Glucose (UA) NEG (NEG) Urine Ketones NEG (NEG) Urine Occult Blood 1+ (NEG) Urine Nitrite NEG (NEG) Urine Bilirubin NEG (NEG) Urine Urobilinogen NEG (NEG) Urine Leukocyte Esterase TRACE (NEG) Urine RBC 0-4 /hpf (0-4) Urine WBC 5-10 /hpf (0-5) Urine Epithelial Cells 20-30 /lpf (0-5) Urine Bacteria 1+ (NEG) White Blood Count 9.74 K/uL (4.8-10.8) Red Blood Count 2.80 M/uL (4.2-5.4) Hemoglobin 8.6 g/dL (12.0-16.0) Hematocrit 27.1 % (37-47) Mean Corpuscular Volume 96.8 fL (80-100) Mean Corpuscular Hemoglobin 30.7 pg (25-34) Mean Corpuscular Hemoglobin Concent 31.7 g/dl (32-36) Platelet Count 75 K/uL (130-400) Mean Platelet Volume 10.7 fL (7.4-10.4) Neutrophils (%) (Auto) 41.8 % Lymphocytes (%) (Auto) 47.0 % Monocytes (%) (Auto) 7.4 % Eosinophils (%) (Auto) 0.8 % Basophils (%) (Auto) 0.8 % Neutrophils # (Auto) 4.07 K/uL (1.4-6.5) Lymphocytes # (Auto) 4.58 K/uL (1.2-3.4) Monocytes # (Auto) 0.72 K/uL (0.11-0.59) Eosinophils # (Auto) 0.08 K/uL (0-0.5) Basophils # (Auto) 0.08 K/uL (0-0.2) RDW Standard Deviation 88.1 fL (36.4-46.3) RDW Coefficient of Variation 26.0 % (11.5-14.5) Immature Granulocyte % (Auto) 2.2 % Immature Granulocyte # (Auto) 0.21 K/uL (0.00-0.02) Nucleated RBC Absolute Count (auto) 0.39 K/uL (0-0) Nucleated Red Blood Cells % 4.0 % Polychromasia 1+ Anisocytosis PRESENT Pappenheimer Bodies OCCASIONAL Tear Drop Cells OCCASIONAL Huang-Disputanta Bodies OCCASIONAL Schistocytes OCCASIONAL Prothrombin Time 14.8 SECONDS (9.0-12.0) Prothromb Time International Ratio 1.4 (0.9-1.1) Activated Partial Thromboplast Time 32.5 SECONDS (21.0-31.0) Partial Thromboplastin Ratio 1.3 Anion Gap 8.0 mmol/L (3-11) Est Creatinine Clear Calc Drug Dose 72.0 ml/min Estimated GFR () 102.8 Estimated GFR (Non- 88.7 BUN/Creatinine Ratio 16.3 (10-20) Calcium Level 7.1 mg/dl (8.5-10.1) Phosphorus Level 2.9 mg/dl (2.5-4.9) Magnesium Level 2.3 mg/dl (1.8-2.4) Total Bilirubin 1.8 mg/dl (0.2-1) Direct Bilirubin 1.1 mg/dl (0-0.2) Aspartate Amino Transf (AST/SGOT) 126 U/L (15-37) Alanine Aminotransferase (ALT/SGPT) 36 U/L (12-78) Alkaline Phosphatase 261 U/L (45-117) Total Creatine Kinase 148 U/L (26-192) Creatine Kinase MB < 1.0 ng/ml (0.5-3.6) Creatine Kinase MB Ratio (0-3.0) Troponin I < 0.015 ng/ml (0-0.045) Total Protein 6.9 gm/dl (6.4-8.2) Albumin 2.7 gm/dl (3.4-5.0) Lipase 162 U/L (73-393) Laboratory results as reviewed by me. Medications Administered Medications (Trade) Dose Ordered Sig/Kael Route Start Time Stop Time Status Last Admin Dose Admin Sodium Chloride 500 ml @ 999 mls/hr Q31M STAT IV 11/08/17 01:00 11/08/17 01:30 DC 11/08/17 01:00 999 MLS/HR ECG Per My Interpretation Indication: altered mental status Rate (beats per minute): 89 Rhythm: normal sinus Findings: no acute ischemic change, no ectopy, other (QT-c 464) ED Course 0054: The patient was evaluated in room C5. A complete history and physical exam was performed. 0100: Ordered NSS 500 ml @ 999 mls/hr IV. 0254: I reevaluated the patient and she is much improved. She is awake and answering questions. She is no distress. 0357: Reevaluated the patient and she is awake, alert, and oriented. She has no headache or abdominal pain now. Discussed results and discharge instructions: She verbalized understanding and agreement. The patient is ready for discharge. Medical Decision Differential: Sepsis, Infectious (UTI/Pneumonia/Meningitis/etc), Metabolic/ Electrolyte Abnormality, Cardiac, Dehydration, Anemia, Hepatic, Endocrine, Toxicologic, Neurologic, amongst other pathologies entertained. 57 yr old female with generalized weakness and confusion worsening over the last day or so. She has metastatic cancer felt to be reoccurrence of breast CA vs neuroendocrine tumor. Currently on oral meds for CA but has been slowly worsening. She had severe anasarca last week and started aldactone and lasix with vast improvement. Admits minimal oral intake recently. Quite dehydrated by exam and thus given IV fluids empirically. Vast improvement in mental status and answering questions without concern. Denies currently pain nor other symptoms. Abdomen soft/non-tender. CT head negative. CT abdo-pelv with anasarca and known mets throughout. No acute obstruction nor other findings on CT. Albumin lowering. Bili mildly increased. She does not appear encephalopathic thus I do not feel this is liver failure related. Given she is doing much better and mentating normally, I suspect most of this was dehydration. Anemia stable. Plts at baseline. Cr is good. UA clear. She is very much wishing to get home. is physician and we discussed at length work-up and symptoms to monitor for. Head Trauma GCS Score: 15 Medication Reconcilliation Current Medication List: was personally reviewed by me Blood Pressure Screening Patient's blood pressure: Elevated blood pressure Blood pressure disposition: Elevated BP felt to be situational Impression Primary Impression: Dehydration Additional Impressions: Confusion Ascites Metastases to the liver Metastasis to bone Scribe Attestation The scribe's documentation has been prepared under my direction and personally reviewed by me in its entirety. I confirm that the note above accurately reflects all work, treatment, procedures, and medical decision making performed by me. Departure Information Dispostion Home / Self-Care Referrals Edward Shepherd M.D. (PCP) Eloy Koehler MD Forms HOME CARE DOCUMENTATION FORM, IMPORTANT VISIT INFORMATION Patient Instructions My [facility] Additional Instructions Try to keep well hydrated and eat as much as you can. Return if worsening confusion, weakness, passing out, or other concerns. We are always here to help. Problem Qualifiers
[2017-11-08 04:08] VITALS: BP 154/90; PULSE 78; O2SAT 92
--- NOTE | 2017-11-08 06:17 | DIAGNOSTIC IMAGING REPORT ---
CHEST ONE VIEW PORTABLE CLINICAL HISTORY: Generalized Weakness mental status change COMPARISON STUDY: 10/23/2017 FINDINGS: Mild prominence of pulmonary vasculature. Heart top normal. Diaphragms are smooth. Several interstitial changes at the lung bases. IMPRESSION: Mild interstitial congestive failure. The above report was generated using voice recognition software. It may contain grammatical, syntax or spelling errors. Electronically signed by: Suresh Angel M.D. 11/08/2017 6:15 AM Dictated Date/Time: 11/08/2017 6:15 AM
--- NOTE | 2017-11-08 06:27 | DIAGNOSTIC IMAGING REPORT ---
HEAD COMBO CLINICAL HISTORY: worsening confusion, known breast CA mental status change TECHNIQUE: Pre and postcontrast transaxial acquisition COMPARISON STUDY: 08/04/2017 FINDINGS: Negative study. No evidence for an enhancing lesion. Bony structures are intact. The ventricular system is midline. IMPRESSION: Negative study. The above report was generated using voice recognition software. It may contain grammatical, syntax or spelling errors. Electronically signed by: Suresh Angel M.D. 11/08/2017 6:25 AM Dictated Date/Time: 11/08/2017 6:24 AM
--- NOTE | 2017-11-08 06:33 | DIAGNOSTIC IMAGING REPORT ---
ABD/PELVIS IV CONTRAST ONLY CT DOSE: HISTORY: Pain diffuse abdominal discomfort, nausea, known breast CA TECHNIQUE: Multiaxial CT images of the abdomen and pelvis were performed following the use of intravenous contrast. A dose lowering technique was utilized adhering to the principles of ALARA. COMPARISON STUDY: 08/10/2017 FINDINGS: Mild bibasilar atelectatic change similar to the prior study. Hepatic metastatic disease is noted. This is similar compared to the prior study. Small amount of abdominal and pelvic ascites slightly increased from the prior exam. Nonobstructive bowel pattern. Diffuse bony metastatic disease considered stable. Mild fluid within the pelvic cul-de-sac. Slight body wall anasarca. IMPRESSION: 1. Stable diffuse bony metastatic change. 2. Slight increase in abdominal and pelvic ascites. 3. Stable hepatic metastatic change. 4. Mild anasarca. The above report was generated using voice recognition software. It may contain grammatical, syntax or spelling errors. Electronically signed by: Suresh Angel M.D. 11/08/2017 6:31 AM Dictated Date/Time: 11/08/2017 6:27 AM
[2017-11-08] MEDS ORDERED: MULT-506 PO (14:02)
[2017-11-08] MEDS ORDERED: CYTM5 PO (18:21)
[2017-11-08] MEDS ORDERED: FMR25 PO (18:21)
[2017-11-08] MEDS ORDERED: MONT1TAB3 PO (18:35)
[2017-11-08] MEDS ORDERED: SENN-61 PO (18:35)
[2017-11-08] MEDS ORDERED: POLY335019 PO (18:35)
[2017-11-08] MEDS ORDERED: [UNRECOGNIZED DRUG - CODE] SQ (18:35)
[2017-11-08] MEDS ORDERED: LEVO25TA PO (19:35)
[2017-11-08] MEDS ORDERED: OXYC-164 PO (21:01)
== END 2017-11-08 04:19 | disposition home or self-care (01) ==
LOC: EDBD 00:19 → C.EDC 00:20
DX: E86.0 Dehydration (principal); R41.0 Disorientation, unspecified; R18.8 Other ascites; C78.7 Secondary malignant neoplasm of liver and intrahepatic bile duct; C79.51 Secondary malignant neoplasm of bone

== ENCOUNTER 2017-11-08 18:08 | Inpatient (IN) | payer OTHER ==
[~2017-11-08] VITALS: Ht 162.6 cm; Wt 52.7 kg
[~2017-11-08 18:08] MED LIST changes: +FRS/40 PO; +MULT-506 PO
[2017-11-08] MEDS ORDERED: FMR25 PO (18:21)
[2017-11-08] MEDS ORDERED: CYTM5 PO (18:21)
[2017-11-08] MEDS ORDERED: POLY335019 PO (18:35)
[2017-11-08] MEDS ORDERED: [UNRECOGNIZED DRUG - CODE] SQ (18:35)
[2017-11-08] MEDS ORDERED: SENN-61 PO (18:35)
[2017-11-08] MEDS ORDERED: MONT1TAB3 PO (18:35)
[2017-11-08 19:14] LABS: HEMATOCRIT 28.1 % (37-47); MEAN CELL VOLUME 97.2 fL (80-100); MEAN CORPUSCULAR HEMOGLOBIN 31.1 pg (25-34); NUCLEATED RED BLOOD CELL ABS 0.46 K/uL (0-0); RED CELL DISTRIBUTION WIDTH SD 88.9 fL (36.4-46.3); WHITE BLOOD COUNT 9.39 K/uL (4.8-10.8)
[2017-11-08 19:28] LABS: INR 1.4 (0.9-1.1); PTT PATIENT 31.1 SECONDS (21.0-31.0)
[2017-11-08] MEDS ORDERED: LEVO25TA PO (19:35)
[2017-11-08 19:44] LABS: ALKALINE PHOSPHATASE 271 U/L (45-117); ALT/SGPT 39 U/L (12-78); AST/SGOT 136 U/L (15-37); BLOOD UREA NITROGEN 9 mg/dl (7-18); CALCIUM 6.8 mg/dl (8.5-10.1); CARBON DIOXIDE 22 mmol/L (21-32); GLUCOSE 109 mg/dl (70-99); POTASSIUM 3.6 mmol/L (3.5-5.1); SODIUM 138 mmol/L (136-145); TOTAL PROTEIN 7.3 gm/dl (6.4-8.2)
[2017-11-08] MEDS ORDERED: LACTULOSE SYRUP 20 GM/30 ML UDC PO STA (19:45)
[2017-11-08 19:58] LABS: MEAN PLATELET VOLUME 9.9 fL (7.4-10.4); PLATELET COUNT 74 K/uL (130-400)
--- NOTE | 2017-11-08 20:08 | DIAGNOSTIC IMAGING REPORT ---
BRAIN WITHOUT CONTRAST HISTORY: Mental status change ams w/ ca TECHNIQUE: Multiplanar multisequence MRI of the brain was performed without the use of contrast. COMPARISON STUDY: CT same date FINDINGS: Diffusion-weighted images show no evidence for an acute ischemic event. Considerable motion artifact present throughout. Nonspecific increase in signal overlying the right and to lesser extent left cerebral hemispheres at the level of the dura. Foci of increased signal within the frontal lobes bilaterally. IMPRESSION: 1. Nonspecific subtle increase in dural signal over the right to lesser extent left cerebral hemisphere. 2. Foci of increased signal within the frontal regions bilaterally also nonspecific. 3. No evidence for an acute ischemic event. 4. This study should be reacquired with gadolinium enhancement due to the possibility of meningeal carcinomatosis and/or parenchymal metastatic change. The above report was generated using voice recognition software. It may contain grammatical, syntax or spelling errors. Electronically signed by: Suresh Angel M.D. 11/08/2017 8:06 PM Dictated Date/Time: 11/08/2017 8:02 PM
[2017-11-08] MEDS ORDERED: OXYCODONE HCL IR 5 MG TAB (IMMEDIATE RELEASE) PO PRN (20:30)
[2017-11-08] MEDS ORDERED: MAGNESIUM HYDROXIDE SUSP 30 ML UDC PO PRN (20:30)
[2017-11-08] MEDS ORDERED: POLYETHYLENE (MIRALAX) 17 GM PACK PO PRN (20:30)
[2017-11-08] MEDS ORDERED: ALUMINUM/MAGNESIUM/SIMETH (MAALOX MAX) 30 ML UDC PO PRN (20:30)
[2017-11-08] MEDS ORDERED: ACETAMINOPHEN 325 MG TAB PO PRN (20:30)
[2017-11-08] MEDS ORDERED: ONDANSETRON INJ 2 MG/ML 2 ML VIAL IV PRN (20:30)
[2017-11-08] MEDS ORDERED: SENNA 8.6 MG TAB PO PRN (20:30)
[2017-11-08 20:31] LABS: BASO % 0.6 %; BASO ABS # 0.06 K/uL (0-0.2); EOS % 0.4 %; EOS ABS # 0.04 K/uL (0-0.5); IG# 0.16 K/uL (0.00-0.02); LYMPH % 45.2 %; LYMPH ABS # 4.24 K/uL (1.2-3.4); MONO % 7.8 %; MONO ABS # 0.73 K/uL (0.11-0.59); NEUT % 44.3 %; NEUT ABS # 4.16 K/uL (1.4-6.5)
[2017-11-08] MEDS ORDERED: IV FLUIDS COMPLETED PRN (21:00)
[2017-11-08] MEDS ORDERED: OXYC-164 PO (21:01)
--- NOTE | 2017-11-08 21:13 | History and Physical ---
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 She is receiving treatment with Xgeva presently. She has had worsening generalized pain and confusion over the past 2 days. She visited the ER AM and was DCd when her pain was adequately controlled. She returns primarily due to confusion. She is able to maintain a conversation but is otherwise disoriented and cannot recall basic things such as names of her family members and is not oriented to time and place. Due to hepatic involvement of her CA, an ammonia level was obtained which returned elevated at 110. Also of concern, a noncontrast MRI brain revealed nonspecific enhancement of the cerebral and frontal regions BL. She will be admitted for AMS which may be multifactorial or due primarily to hepatic encephalopathy. Initial labs are notable for an elevated bilirubin, AP and AST. INR is also slightly elevated and a calcium level is low. She does not complain of pain at the time of admission. Past Medical/Surgical History 1) Metastatic carcinoid CA vs breast CA - initial diagnosis 07/2017 - there is ongoing debate over the primary site per the pt's . She was at [place] in [place] where family were told the primary was likely a recurrence of breast CA. There was also concern for a neuroendocrine tumor emanating from the small intestine - Primary site has not been definitively determined. Receiving treatment with Xgeva and Octreotide presently. 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 She does not drink or smoke. Smoking Status: Never Smoker Marital Status: Occupational Status: unemployed Immunizations History of Influenza Vaccine: No History of Tetanus Vaccine?: No History of Pneumococcal: No Pneumococcal Date: Feb 02, 2002 History of Hepatitis B Vaccine: No Allergies Uncoded Allergies: dogs and cats (Allergy, Severe, itchy eyes and sneezing, 10/20/17) enviromental (Allergy, Intermediate, sneezing to bronchitis and sthma exaserbates, 10/20/17) Home Medications Scheduled Denosumab (Xgeva), 1 DOSE SQ MONTHLY Fentanyl (Fentanyl), 25 MCG TOP CQ72HR Letrozole (Femara), 2.5 MG PO QPM Levothyroxine Sodium (Synthroid), 25 MCG PO BID Liothyronine Sodium (Liothyronine Sodium), 5 MCG PO BID Montelukast Sodium (Singulair), 10 MG PO DAILY Multivitamin (Multivitamin), 1 TAB PO DAILY Octreotide Acetate (Sandostatin [place]), 1 DOSE SQ MONTHLY Scheduled PRN Furosemide (Lasix), 40 MG PO DAILY PRN for FLUID RETENTION Oxycodone Hcl (Oxycodone Hcl), 10 MG PO Q4-6HRS PRN for Pain Polyethylene Glycol 3350 (Miralax), 17 GM PO DAILY PRN for Constipation Senna (Senokot), 17.2 MG PO BID PRN for Constipation Review of Systems Constitutional: + weakness, + fatigue, No fever, No chills, No sweats Eyes: No worsening of vision ENT: No hearing loss, No unusual epistaxis, No nasal symptoms Respiratory: No cough, No wheezing Cardiovascular: No chest pain, No PND Abdomen: + pain, + nausea Musculoskeletal: + joint pain (chronic skeletal pain) Genitourinary - Female: No dysuria, No urinary frequency, No urinary urgency Neurologic: + memory loss, + weakness, + problem reported (Disoriented as above ) Endocrine: + fatigue Hematologic / Lymphatic: No abnormal bleeding/bruising Integumentary: No rash Allergic / Immunologic: No environmental allergies Physical Exam Vital Signs Date Time Temp Pulse Resp B/P (MAP) Pulse Ox O2 Delivery O2 Flow Rate FiO2 11/08/17 19:37 87 18 152/87 95 Room Air 11/08/17 18:12 37.2 91 20 126/82 96 Room Air General Appearance: WD/WN, no apparent distress, + pertinent finding (Pleasant , cachectic-appearing, middle age female ) Head: normocephalic ENT: normal ENT inspection, pharynx normal Neck: supple, no JVD Respiratory/Chest: chest non-tender, lungs clear, normal breath sounds Cardiovascular: regular rate, rhythm, no edema Abdomen/GI: normal bowel sounds, non tender, soft Back: normal inspection, no CVA tenderness Extremities/Musculoskelatal: normal inspection, no calf tenderness, normal capillary refill 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, no motor/sensory deficits, + disoriented (AAO x 1 ) Diagnostics Laboratory Results Results Past 24 Hours Test 11/08/17 19:02 11/08/17 19:13 Range/Units White Blood Count 9.39 4.8-10.8 K/uL Red Blood Count 2.89 4.2-5.4 M/uL Hemoglobin 9.0 12.0-16.0 g/dL Hematocrit 28.1 37-47 % Mean Corpuscular Volume 97.2 80-100 fL Mean Corpuscular Hemoglobin 31.1 25-34 pg Mean Corpuscular Hemoglobin Concent 32.0 32-36 g/dl Platelet Count 74 130-400 K/uL Mean Platelet Volume 9.9 7.4-10.4 fL Neutrophils (%) (Auto) 44.3 % Lymphocytes (%) (Auto) 45.2 % Monocytes (%) (Auto) 7.8 % Eosinophils (%) (Auto) 0.4 % Basophils (%) (Auto) 0.6 % Neutrophils # (Auto) 4.16 1.4-6.5 K/uL Lymphocytes # (Auto) 4.24 1.2-3.4 K/uL Monocytes # (Auto) 0.73 0.11-0.59 K/uL Eosinophils # (Auto) 0.04 0-0.5 K/uL Basophils # (Auto) 0.06 0-0.2 K/uL RDW Standard Deviation 88.9 36.4-46.3 fL RDW Coefficient of Variation 26.0 11.5-14.5 % Immature Granulocyte % (Auto) 1.7 % Immature Granulocyte # (Auto) 0.16 0.00-0.02 K/uL Nucleated RBC Absolute Count (auto) 0.46 0-0 K/uL Nucleated Red Blood Cells % 4.8 % Anisocytosis PRESENT Prothrombin Time 15.0 9.0-12.0 SECONDS Prothromb Time International Ratio 1.4 0.9-1.1 Activated Partial Thromboplast Time 31.1 21.0-31.0 SECONDS Partial Thromboplastin Ratio 1.2 Sodium Level 138 136-145 mmol/L Potassium Level 3.6 3.5-5.1 mmol/L Chloride Level 107 98-107 mmol/L Carbon Dioxide Level 22 21-32 mmol/L Anion Gap 9.0 3-11 mmol/L Blood Urea Nitrogen 9 7-18 mg/dl Creatinine 0.70 0.60-1.20 mg/dl Estimated GFR () 109.9 Estimated GFR (Non- 94.8 BUN/Creatinine Ratio 12.7 10-20 Random Glucose 109 70-99 mg/dl Calcium Level 6.8 8.5-10.1 mg/dl Total Bilirubin 2.1 0.2-1 mg/dl Direct Bilirubin 1.1 0-0.2 mg/dl Aspartate Amino Transf (AST/SGOT) 136 15-37 U/L Alanine Aminotransferase (ALT/SGPT) 39 12-78 U/L Alkaline Phosphatase 271 45-117 U/L Ammonia 110.0 11-32 umol/L Troponin I < 0.015 0-0.045 ng/ml Total Protein 7.3 6.4-8.2 gm/dl Albumin 3.0 3.4-5.0 gm/dl Thyroid Stimulating Hormone (TSH) 2.940 0.300-4.500 uIu/ml Urine Color YELLOW Urine Appearance CLEAR CLEAR Urine pH 5.5 4.5-7.5 Urine Specific [place] 1.017 1.000-1.030 Urine Protein NEG NEG Urine Glucose (UA) NEG NEG Urine Ketones NEG NEG Urine Occult Blood 1+ NEG Urine Nitrite NEG NEG Urine Bilirubin NEG NEG Urine Urobilinogen NEG NEG Urine Leukocyte Esterase NEG NEG Urine WBC (Auto) 1-5 0-5 /hpf Urine RBC (Auto) 0-4 0-4 /hpf Urine Hyaline Casts (Auto) 0 0-5 /lpf Urine Epithelial Cells (Auto) 5-10 0-5 /lpf Urine Bacteria (Auto) NEG NEG Diagnostic Radiology MRI brain - noncontrast: 1. Nonspecific subtle increase in dural signal over the right to lesser extent left cerebral hemisphere. 2. Foci of increased signal within the frontal regions bilaterally also nonspecific. 3. No evidence for an acute ischemic event. 4. This study should be reacquired with gadolinium enhancement due to the possibility of meningeal carcinomatosis and/or parenchymal metastatic change. 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 She is receiving treatment with Xgeva presently. She has had worsening generalized pain and confusion over the past 2 days. She visited the ER AM and was DCd when her pain was adequately controlled. She returns primarily due to confusion. She is able to maintain a conversation but is otherwise disoriented and cannot recall basic things such as names of her family members and is not oriented to time and place. Due to hepatic involvement of her CA, an ammonia level was obtained which returned elevated at 110. Also of concern, a noncontrast MRI brain revealed nonspecific enhancement of the cerebral and frontal regions BL. She will be admitted for AMS which may be multifactorial or due primarily to hepatic encephalopathy. Initial labs are notable for an elevated bilirubin, AP and AST. INR is also slightly elevated and a calcium level is low. 1) AMS may be multifactorial: - Hepatic encephalopathy due to liver metastasis. She will receive IVF and scheduled lactulose. We can reassess her mental status AM. She is presently cooperative. - We will obtain a contrast MRI as the noncontrast study may portend meningeal carcinomatosis - Narcotic use should also be taken into consideration as a contributing factor if she does not improve with Lactulose. 2) Carcinoid - bone involvement - chronic pain. She will remain on Fentanyl and Oxycodone. 3) Hypocalcemia - she was previously admitted with hypercalcemia. Her current corrected CA is approximately 7.4. We will provide IV calcium gluconate and start her on daily calcium, although levels will need close monitoring. 4) Hypothyroidism - cont Synthroid - check TSH due to AMS 5) Asthma - cont Montelukast 6) Moderate protein malnutrition - Her nutritional status will need to be addressed prior to DC. - As the above labs and imaging are not encouraging, we will consult her oncologist. Full code - SCDs due to bleeding risk Total time for this admit including review of labs, meds, imaging, records - discussion with family, pt and ER attending - 39 min Resuscitation Status VTE Prophylaxis Will order VTE Prophylaxis: Yes
[2017-11-08 21:45] VITALS: BP 148/90; PULSE 92; TEMP 36.9; O2SAT 93; Ht 162.6 cm; Wt 52.7 kg
[2017-11-08] MEDS ORDERED: CALCIUM GLUCONATE 10% 500 MG in SODIUM CHLORIDE 0.9% 50ML 50 ML IV STA (21:51)
[2017-11-08] MEDS ORDERED: D5NSS + 20MEQ KCL 1,000 ML IV SCH (22:00)
[2017-11-08] MEDS ORDERED: POTASSIUM CHLORIDE PWD 20 MEQ PACK PO ONE (22:00)
[2017-11-08] MEDS ORDERED: LETROZOLE 2.5 MG TAB PO SCH (22:00)
[2017-11-08] MEDS ORDERED: FENTANYL 25 MCG/HR TDSY TD SCH (22:00)
[2017-11-08] MEDS: LACTULOSE SYRUP 30 GM/45 ML UDP PO SCH (22:31)
[2017-11-08] MEDS: CALCIUM CARBONATE 1250MG TAB PO SCH (22:39)
[2017-11-08] MEDS: LIOTHYRONINE SODIUM 5 MCG TAB PO SCH (22:44)
[2017-11-08] MEDS: LEVOTHYROXINE 25 MCG TAB PO SCH (22:44)
--- NOTE | 2017-11-08 22:48 | EMERGENCY ROOM VISIT NOTE ---
History Report prepared by Nancy: Susannah Keith Under the Supervision of: Dr. Mynor Rowland D.O. First contact with patient: 18:16 Chief Complaint: CONFUSION Stated Complaint: CONFUSION,DISORIENTED, WEAKNESS- CANCER PT History of Present Illness The patient is a 57 year old female who presents to the Emergency Room with complaints of confusion beginning yesterday around 10PM. She is accompanied by her who notes that his was very lethargic and weak last night so they went to the ED and after a few hours as the patient became very confused, her symptoms improved so she was discharged. A few hours after being home, her notes his became "more vacant" as she began having difficulty forming sentences, did not know her date, and became more lethargic like she previously was. When asked, the patient knows where she is but is unsure of the month and year and has memory problems with the past and present day. 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 Pt denies headache, change in vision, fevers, chest pain, shortness of breath, nausea, vomiting, diarrhea, pain with urination, and melena. She has had a a cholecystectomy, a unilateral salpingo-oophorectomy, and a hysterectomy. The patient has metastatic breast cancer and her doctor is Dr. Eloy Koehler. Source of History: patient, spouse/significant other () Onset: yesterday Position: head Quality: other (confusion) Timing: other (sudden) Associated Symptoms: + abdominal pain, No fevers, No headache, No chest pain , No SOB, No nausea, No vomiting, No melena, No diarrhea, No urinary symptoms ( pain with urination) Note: Negative changes in vision Review of Systems See HPI for pertinent positives & negatives. A total of 10 systems reviewed and were otherwise negative. Past Medical & Surgical Medical Problems: (1) Dysmenorrhea (2) Hepatic encephalopathy (3) Salpingo-oophorectomy (4) severe hypercalcemia (5) Total abdominal hysterectomy Family History Heart disease Social History Smoking Status: Never Smoker Alcohol Use: occasionally Marital Status: Housing Status: lives with significant other Occupation Status: unemployed Current/Historical Medications Scheduled Denosumab (Xgeva), 1 DOSE SQ MONTHLY Fentanyl (Fentanyl), 25 MCG TOP CQ72HR Letrozole (Femara), 2.5 MG PO QPM Levothyroxine Sodium (Synthroid), 25 MCG PO BID Liothyronine Sodium (Liothyronine Sodium), 5 MCG PO BID Montelukast Sodium (Singulair), 10 MG PO DAILY Multivitamin (Multivitamin), 1 TAB PO DAILY Octreotide Acetate (Sandostatin [place]), 1 DOSE SQ MONTHLY Scheduled PRN Furosemide (Lasix), 40 MG PO DAILY PRN for FLUID RETENTION Oxycodone Hcl (Oxycodone Hcl), 10 MG PO Q4-6HRS PRN for Pain Polyethylene Glycol 3350 (Miralax), 17 GM PO DAILY PRN for Constipation Senna (Senokot), 17.2 MG PO BID PRN for Constipation Allergies Coded Allergies: Cat Dander (Verified Allergy, Severe, CAT ALLERGY, 11/08/17) Dog Epithelium (Verified Allergy, Severe, DOG ALLERGY, 11/08/17) Physical Exam Vital Signs Date Time Temp Pulse Resp B/P (MAP) Pulse Ox O2 Delivery O2 Flow Rate FiO2 11/08/17 19:37 87 18 152/87 95 Room Air 11/08/17 18:12 37.2 91 20 126/82 96 Room Air Physical Exam GENERAL: Sitting up in bed, ill-appearing, cachectic, disheveled. EYE EXAM: normal conjunctiva. PERRL and EOM's intact. OROPHARYNX: no exudate, no erythema, lips, buccal mucosa, and tongue normal and mucous membranes are moist NECK: supple, no nuchal rigidity, no adenopathy, non-tender LUNGS: Clear to auscultation. Normal chest wall mechanics HEART: no murmurs, S1 normal and S2 normal ABDOMEN: abdomen soft, non-tender, normo-active bowel sounds, no masses, no rebound or guarding. BACK: Back is symmetrical on inspection and there is no deformity, no midline tenderness, no CVA tenderness. SKIN: no rashes and no bruising UPPER EXTREMITIES: upper extremities are grossly normal. LOWER EXTREMITIES: No pitting edema. NEURO EXAM: Oriented to place, not month or year. Difficulty remembering past history, son's ages and names. cranial nerves II-XII intact, normal speech, no weakness of arms, no weakness of legs. No drift. Finger to nose intact. Gross sensation intact. [facility] Medical Decision & Procedures ER Provider Diagnostic Interpretation: Radiology results as stated below per my review and the radiologist's interpretation: BRAIN WITHOUT CONTRAST HISTORY: Mental status change ams w/ ca TECHNIQUE: Multiplanar multisequence MRI of the brain was performed without the use of contrast. COMPARISON STUDY: CT same date FINDINGS: Diffusion-weighted images show no evidence for an acute ischemic event. Considerable motion artifact present throughout. Nonspecific increase in signal overlying the right and to lesser extent left cerebral hemispheres at the level of the dura. Foci of increased signal within the frontal lobes bilaterally. IMPRESSION: 1. Nonspecific subtle increase in dural signal over the right to lesser extent left cerebral hemisphere. 2. Foci of increased signal within the frontal regions bilaterally also nonspecific. 3. No evidence for an acute ischemic event. 4. This study should be reacquired with gadolinium enhancement due to the possibility of meningeal carcinomatosis and/or parenchymal metastatic change. The above report was generated using voice recognition software. It may contain grammatical, syntax or spelling errors. Electronically signed by: Suresh Angel M.D. 11/08/2017 8:06 PM Laboratory Results 11/08/17 19:02 Red Blood Count 2.89, Mean Corpuscular Volume 97.2, Mean Corpuscular Hemoglobin 31.1, Mean Corpuscular Hemoglobin Concent 32.0, Mean Platelet Volume 9.9, Neutrophils (%) (Auto) 44.3, Lymphocytes (%) (Auto) 45.2, Monocytes (%) (Auto) 7.8, Eosinophils (%) (Auto) 0.4, Basophils (%) (Auto) 0.6, Neutrophils # (Auto) 4.16, Lymphocytes # (Auto) 4.24, Monocytes # (Auto) 0.73, Eosinophils # (Auto) 0.04, Basophils # (Auto) 0.06 11/08/17 19:02 Test 11/08/17 19:02 11/08/17 19:13 White Blood Count 9.39 K/uL (4.8-10.8) Red Blood Count 2.89 M/uL (4.2-5.4) Hemoglobin 9.0 g/dL (12.0-16.0) Hematocrit 28.1 % (37-47) Mean Corpuscular Volume 97.2 fL (80-100) Mean Corpuscular Hemoglobin 31.1 pg (25-34) Mean Corpuscular Hemoglobin Concent 32.0 g/dl (32-36) Platelet Count 74 K/uL (130-400) Mean Platelet Volume 9.9 fL (7.4-10.4) Neutrophils (%) (Auto) 44.3 % Lymphocytes (%) (Auto) 45.2 % Monocytes (%) (Auto) 7.8 % Eosinophils (%) (Auto) 0.4 % Basophils (%) (Auto) 0.6 % Neutrophils # (Auto) 4.16 K/uL (1.4-6.5) Lymphocytes # (Auto) 4.24 K/uL (1.2-3.4) Monocytes # (Auto) 0.73 K/uL (0.11-0.59) Eosinophils # (Auto) 0.04 K/uL (0-0.5) Basophils # (Auto) 0.06 K/uL (0-0.2) RDW Standard Deviation 88.9 fL (36.4-46.3) RDW Coefficient of Variation 26.0 % (11.5-14.5) Immature Granulocyte % (Auto) 1.7 % Immature Granulocyte # (Auto) 0.16 K/uL (0.00-0.02) Nucleated RBC Absolute Count (auto) 0.46 K/uL (0-0) Nucleated Red Blood Cells % 4.8 % Anisocytosis PRESENT Prothrombin Time 15.0 SECONDS (9.0-12.0) Prothromb Time International Ratio 1.4 (0.9-1.1) Activated Partial Thromboplast Time 31.1 SECONDS (21.0-31.0) Partial Thromboplastin Ratio 1.2 Anion Gap 9.0 mmol/L (3-11) Estimated GFR () 109.9 Estimated GFR (Non- 94.8 BUN/Creatinine Ratio 12.7 (10-20) Calcium Level 6.8 mg/dl (8.5-10.1) Total Bilirubin 2.1 mg/dl (0.2-1) Direct Bilirubin 1.1 mg/dl (0-0.2) Aspartate Amino Transf (AST/SGOT) 136 U/L (15-37) Alanine Aminotransferase (ALT/SGPT) 39 U/L (12-78) Alkaline Phosphatase 271 U/L (45-117) Ammonia 110.0 umol/L (11-32) Troponin I < 0.015 ng/ml (0-0.045) Total Protein 7.3 gm/dl (6.4-8.2) Albumin 3.0 gm/dl (3.4-5.0) Thyroid Stimulating Hormone (TSH) 2.940 uIu/ml (0.300-4.500) Urine Color YELLOW Urine Appearance CLEAR (CLEAR) Urine pH 5.5 (4.5-7.5) Urine Specific [place] 1.017 (1.000-1.030) Urine Protein NEG (NEG) Urine Glucose (UA) NEG (NEG) Urine Ketones NEG (NEG) Urine Occult Blood 1+ (NEG) Urine Nitrite NEG (NEG) Urine Bilirubin NEG (NEG) Urine Urobilinogen NEG (NEG) Urine Leukocyte Esterase NEG (NEG) Urine WBC (Auto) 1-5 /hpf (0-5) Urine RBC (Auto) 0-4 /hpf (0-4) Urine Hyaline Casts (Auto) 0 /lpf (0-5) Urine Epithelial Cells (Auto) 5-10 /lpf (0-5) Urine Bacteria (Auto) NEG (NEG) Laboratory results per my review. Medications Administered Medications (Trade) Dose Ordered Sig/Kael Route Start Time Stop Time Status Last Admin Dose Admin Lactulose (Chronulac Syrup) 30 gm NOW STAT PO 11/08/17 19:45 11/08/17 19:46 DC 11/08/17 20:21 30 GM ECG Per My Interpretation Indication: other (confusion) Rate (beats per minute): 89 Rhythm: sinus rhythm Findings: T-wave inversion (in lead III), left axis deviation, other (no PVCs, poor baseline) ED Course ED COURSE: Vital signs were reviewed and showed normotensive The patients medical record was reviewed The above diagnostic studies were performed and reviewed. ED treatments and interventions as stated above. 1817: The patient was evaluated in room B6. A complete history and physical examination was performed. 1944: Ordered Lactulose 30 gm 2020: I reviewed the patient's case with Dr. Velasco, [facility] Hospitalist. He will evaluate the patient for further management. []: Upon reevaluation, the patient is []. I discussed my findings with the [ patient] and [] understands and agrees with the treatment plan. Based on the patients age, coexisting illnesses, exam and lab findings the decision to treat as an [inpatient][outpatient] was made. The patient remained stable while under my care. [The patient appeared well at the time of discharge.] [The patient will be evaluated for further management.] Medical Decision Differential diagnoses includes but is not limited to toxic, metabolic, infectious, traumatic, cardiac, neurologic, hematologic, psychiatric and inflammatory etiologies. Patient is a 57-year-old female with metastatic breast cancer that presents the ER for confusion. She was seen here overnight for similar symptoms. On exam she is oriented to place but not year or date. Unable past history and current family issues. Patient is otherwise neurologically intact. She does have positive asterixis. Does have metastatic disease to the liver. Labs were obtained including CBC, BMP, LFTs, bilirubin, lipase, troponin, TSH and ammonia. Ammonia was elevated in the 100s. Bilirubin was elevated again. Anemia was present with a hemoglobin of 9. UA was once again normal. INR was 1.4. Did not repeat a CT of the head or CT abdomen pelvis but did perform an MRI noncontrast which showed no emergent issues. Discussed with family and internal medicine. Patient was given lactulose. Patient was admitted to internal medicine for hepatic encephalopathy. Medication Reconcilliation Current Medication List: was personally reviewed by me Blood Pressure Screening Patient's blood pressure: Normal blood pressure Blood pressure disposition: Did not require urgent referral Consults Time Called: 2010 Consulting Physician: Dr. Velasco [facility] Hospitalist Returned Call: 2019 I reviewed the patient's case with Dr. Velasco [facility] Hospitalist. He will evaluate the patient for further management. Impression Primary Impression: Hepatic encephalopathy Additional Impressions: Confusion Anemia Scribe Attestation The scribe's documentation has been prepared under my direction and personally reviewed by me in its entirety. I confirm that the note above accurately reflects all work, treatment, procedures, and medical decision making performed by me. Departure Information Dispostion Being Evaluated By Hospitalist (Dr. Velasco, [facility] Hospitalist) Referrals Edward Shepherd M.D. (PCP) Patient Instructions [facility] Problem Qualifiers Additional Impressions: Anemia Anemia type: unspecified type Qualified Codes: D64.9 - Anemia, unspecified
[2017-11-09 03:34] VITALS: BP 149/90; PULSE 90; TEMP 37.1; O2SAT 93
[2017-11-09] MEDS: LACTULOSE SYRUP 30 GM/45 ML UDP PO SCH (06:07)
[2017-11-09] MEDS: LEVOTHYROXINE 25 MCG TAB PO SCH (06:07)
[2017-11-09] MEDS: LIOTHYRONINE SODIUM 5 MCG TAB PO SCH (06:08)
[2017-11-09 06:28] LABS: HEMATOCRIT 24.5 % (37-47); HEMOGLOBIN 7.9 g/dL (12.0-16.0); MEAN CELL VOLUME 96.8 fL (80-100); MEAN CORPUSCULAR HEMOGLOBIN 31.2 pg (25-34); MEAN CORPUSCULAR HGB CONC 32.2 g/dl (32-36); NUCLEATED RED BLOOD CELL ABS 0.42 K/uL (0-0); RED CELL DISTRIBUTION WIDTH CV 26.5 % (11.5-14.5); WHITE BLOOD COUNT 9.33 K/uL (4.8-10.8)
[2017-11-09 06:40] LABS: MEAN PLATELET VOLUME 9.1 fL (7.4-10.4); PLATELET COUNT 66 K/uL (130-400)
[2017-11-09 07:07] VITALS: BP 116/75; PULSE 92; TEMP 37; O2SAT 94
[2017-11-09 07:46] LABS: ALBUMIN 2.7 gm/dl (3.4-5.0); CALCIUM 6.9 mg/dl (8.5-10.1); CREATININE 0.69 mg/dl (0.60-1.20); POTASSIUM 3.7 mmol/L (3.5-5.1); TOTAL PROTEIN 6.5 gm/dl (6.4-8.2)
[2017-11-09] MEDS: CALCIUM CARBONATE 1250MG TAB PO SCH (07:48)
[2017-11-09 08:00] VITALS: O2SAT 94
[2017-11-09] MEDS ORDERED: POTASSIUM CHLORIDE 10 MEQ TABCR PO SCH (08:00)
[2017-11-09] MEDS ORDERED: MONTELUKAST SOD 10 MG TAB PO SCH (08:00)
[2017-11-09] MEDS ORDERED: CHECK FENTANYL PATCH PLACEMENT SCH (08:00)
[2017-11-09] MEDS ORDERED: CALCIUM CARBONATE 500 MG CHEWABLE PO SCH (08:00)
--- NOTE | 2017-11-09 08:05 | DIAGNOSTIC IMAGING REPORT ---
MRI OF THE BRAIN WITHOUT AND WITH IV CONTRAST CLINICAL HISTORY: Metastatic breast cancer. Encephalopathy. COMPARISON STUDY: Head CT and MRI of the brain November 08, 2017. TECHNIQUE: Utilizing a 1.5 Maci magnet and dedicated coil, multiplanar, multiecho imaging of the brain was performed pre and postcontrast administration. IV administration of 5.5 mL of Gadavist contrast was uneventful. FINDINGS: Ventricular system is normal. Basilar cisterns are patent. Note is made of trace T1 and T2 hyperintense subdural fluid overlying the right cerebral hemisphere which measures 2 mm in thickness. This suggests a tiny subdural hematoma without mass effect. There is mild right-sided pachymeningeal enhancement which is likely related to the subdural hematoma. No enhancing parenchymal lesions are noted. Scattered white matter T2 hyperintense foci statistically reflect small vessel disease. Diffuse marrow replacement is noted within visualized skeletal structures. IMPRESSION: 1. Findings suggestive of a trace right-sided subdural hematoma. No significant mass effect. Associated mild pachymeningeal enhancement is likely related to the subdural hematoma. Metastatic disease is considered much less likely. Short-term follow-up head CT is recommended. 2. Diffuse marrow replacement suggestive of skeletal metastatic disease. 3. No parenchymal metastases identified. Electronically signed by: Levi Ny M.D. 11/09/2017 8:04 AM Dictated Date/Time: 11/09/2017 7:30 AM
--- NOTE | 2017-11-09 08:38 | ONCOLOGY CONSULTATION ---
DATE OF CONSULTATION: 11/09/2017 REASON FOR CONSULTATION: Hepatic encephalopathy. HISTORY OF PRESENT ILLNESS: Suellen is a 57-year-old female well known to [facility] with metastatic carcinoma, primary unknown, under the care of Dr. Eloy Koehler. Suellen apparently has been struggling with confusion and worsening generalized pain. She was in the Emergency Room the day before yesterday after pain was adequately controlled. Apparently, has been unable to carry on conversation and is disoriented to names and family members as well as place and time. Her ammonia level measured 110 on admission. Noncontrast MRI of the brain revealed nonspecific enhancement of the frontal regions bilaterally. She is minimally conversant at bedside and really a very poor informant, providing little additional clinical information. Suellen is a pleasant 57-year-old woman with history of ER/AL positive DCIS. It was treated by lumpectomy and radiation therapy back in 2002. She had deferred on tamoxifen because of family history of thromboembolic disease. She represented in June of 2017 with multiple rib fractures and imaging at that time revealed widespread osseous lytic lesions and a heterogeneous mass in the liver, all concerning for malignancy. Unfortunately, the lesion itself was not amenable to biopsy by ultrasound and therefore bone marrow biopsy and aspiration was performed in July of 2017. The marrow was positive for metastatic carcinoma with the appearance and immunophenotype consistent with low-grade neuroendocrine tumor. Octreotide scan followed in August suggesting a possible site of origin near the ileocecal valve. She was placed on Sandostatin and Xgeva in late August. 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 MEDICATIONS: Prior to admission include Xgeva 120 mg subQ monthly, fentanyl 25 mcg topically q. 72 hours, Femara 2.5 mg p.o. daily, Synthroid 25 mcg p.o. b.i.d., liothyronine sodium 5 mcg p.o. b.i.d., Singulair 10 mg p.o. daily, multivitamin 1 tablet p.o. daily, octreotide 30 mg subQ q. monthly. PRNs include Lasix, oxycodone, MiraLax and senna. ALLERGIES: TO DOGS AND CAT. 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 She is , nonsmoker, nondrinker. She is currently unemployed. FAMILY HISTORY: Positive for heart disease. REVIEW OF SYSTEMS: Unobtainable because of the patient's mental status. PHYSICAL EXAMINATION: GENERAL: She is somnolent and does not readily answer questions with any ____. VITAL SIGNS: Temperature 37, pulse 92, respiratory rate 18, blood pressure 116/75. SKIN: Without rash or lesion. HEENT: Atraumatic, normocephalic. EYES: PERRLA, EOMI. Nares patent without rhinorrhea or discharge. Throat clear. Tongue midline. Mucous membranes are moist. No buccal lesions or ulcerations. NECK: Supple. HEART: Regular rate and rhythm. LUNGS: Clear to auscultation bilaterally. ABDOMEN: Soft, nontender, nondistended, without palpable hepatosplenomegaly. EXTREMITIES: No calf tenderness or swelling. No clubbing, cyanosis or edema. NEUROLOGIC: The patient is awake and alert. She is currently disoriented. Cranial nerve testing not done. LABORATORY DATA: WBC count 9330, hemoglobin 7.9, platelet count 66. Sodium 140, potassium 3.7, chloride 111, carbon dioxide 22, creatinine 0.69, BUN 6, total bilirubin 1.8, direct bilirubin 1, AST 136, alkaline phosphatase elevated at 217, albumin 2.7. IMPRESSION: 1. Hepatic encephalopathy. 2. Hypoalbuminemia. 3. Elevated AST. 4. Anemia/thrombocytopenia secondary to disease process. PLAN: The patient has been admitted to medical service and initiated aggressive IV hydration and lactulose. Plan is to obtain contrast MRI to rule out meningeal carcinomatosis. She was provided a calcium supplementation for hypocalcemia. Agree with plan to pursue a dietary consult to work on a protein balance. Unfortunately, I know very little about this unfortunate lady's case and will discuss further with Dr. Koehler regarding plans moving forward. Currently, her left a note for Dr. Koehler to contact her after rounds. I have taken over the service this week and will certainly communicate this to him. I have nothing further to add at this juncture, but we will continue to follow her periodically throughout the hospital stay. Was contacted by the medical team informing me of the diagnosis of subdural hematoma and wants patient transferrred. Thank you for allowing us to participate in the care of this very pleasant but unfortunate 57-year-old patient. MTDD
--- NOTE | 2017-11-09 09:48 | Discharge Instructions ---
Discharge Instructions Date of Service Nov 09, 2017. Admission Reason for Admission: Hepatic Encephalopathy Discharge Discharge Diagnosis / Problem: Trace R Subdural Hematoma Discharge Goals Goal(s): Decrease discomfort, Improve function, Increase independence Activity Recommendations Activity Level: Assistance Required . Additional Information Patient informed of condition: Yes Advance Directives: No DNR: No Level of Care: Other Communicable Disease: No Prognosis: Stable Instructions / Follow-Up Instructions / Follow-Up 57 y/o F Hx metastatic carcinoid vs breast CA - liver and bone involvement ( primary has not been defined), hypercalcemia, hypothyroidism, asthma. She is receiving treatment with Xgeva presently. She has had worsening generalized pain and confusion over the past 2 days. She visited the ER AM and was DCd when her pain was adequately controlled. She returns primarily due to confusion. She is able to maintain a conversation but is otherwise disoriented and cannot recall basic things such as names of her family members and is not oriented to time and place. Due to hepatic involvement of her CA, an ammonia level was obtained which returned elevated at 110. Also of concern, a noncontrast MRI brain revealed nonspecific enhancement of the cerebral and frontal regions BL. She will be admitted for AMS which may be multifactorial or due primarily to hepatic encephalopathy. Initial labs are notable for an elevated bilirubin, AP and AST. INR is also slightly elevated and a calcium level is low. She does not complain of pain at the time of admission. Past Medical/Surgical History 1) Metastatic carcinoid CA vs breast CA - initial diagnosis 07/2017 - there is ongoing debate over the primary site per the pt's . She was at [facility] in [place] where family were told the primary was likely a recurrence of breast CA. There was also concern for a neuroendocrine tumor emanating from the small intestine - Primary site has not been definitively determined. Receiving treatment with Xgeva and Octreotide presently. 2) Severe hypercalcemia related to CA 08/04 3) DCIS L breast - treated with resection and XRT 2012 4) Hypothyroidism 5) Asthma Current Hospital Diet Patient's current hospital diet: Regular Diet Discharge Diet Recommended Diet: Regular Diet Pending Studies Studies pending at discharge: no Medical Emergencies . Who to Call and When: Medical Emergencies: If at any time you feel your situation is an emergency, please call 911 immediately. . Non-Emergent Contact Non-Emergency issues call your: Primary Care Provider Call Non-Emergent contact if: you have a fever, your pain is concerning you, you have any medication questions . . "Provider Documentation" section prepared by Navya Stevenson. . Core Measure Problem Core Measures: None
[2017-11-09 10:03] VITALS: BP 116/75; PULSE 92; TEMP 37; O2SAT 94
--- NOTE | 2017-11-09 11:51 | Discharge Summary ---
Discharge Summary Date of Service Nov 09, 2017. Discharge Summary Admission Date: Nov 09, 2017 at 09:10 Discharge Date: Nov 09, 2017 Discharge Disposition: Acute care facility ([facility]) Principal Diagnosis: Trace R Subdural Hematoma Problems/Secondary Diagnoses: 1. Metastatic Neuroendocrine CA vs Metastatic Breast CA - Unknown Primary - Bone /Liver -- Had evaluation at [facility] - on Xgeva and Octreotide 2. Hypercalcemia 3. DCIS L Breast - S/P Resection and XRT 2012 4. Hypothyroidism 5. Asthma Immunizations: Have You Had Influenza Vaccine: No History of Tetanus Vaccine?: No History of Pneumococcal: No Pneumococcal Date: Feb 02, 2002 History of Hepatitis B Vaccine: No Procedures: MRI OF THE BRAIN WITHOUT AND WITH IV CONTRAST CLINICAL HISTORY: Metastatic breast cancer. Encephalopathy. COMPARISON STUDY: Head CT and MRI of the brain November 08, 2017. TECHNIQUE: Utilizing a 1.5 Maci magnet and dedicated coil, multiplanar, multiecho imaging of the brain was performed pre and postcontrast administration. IV administration of 5.5 mL of Gadavist contrast was uneventful. FINDINGS: Ventricular system is normal. Basilar cisterns are patent. Note is made of trace T1 and T2 hyperintense subdural fluid overlying the right cerebral hemisphere which measures 2 mm in thickness. This suggests a tiny subdural hematoma without mass effect. There is mild right-sided pachymeningeal enhancement which is likely related to the subdural hematoma. No enhancing parenchymal lesions are noted. Scattered white matter T2 hyperintense foci statistically reflect small vessel disease. Diffuse marrow replacement is noted within visualized skeletal structures. IMPRESSION: 1. Findings suggestive of a trace right-sided subdural hematoma. No significant mass effect. Associated mild pachymeningeal enhancement is likely related to the subdural hematoma. Metastatic disease is considered much less likely. Short-term follow-up head CT is recommended. 2. Diffuse marrow replacement suggestive of skeletal metastatic disease. 3. No parenchymal metastases identified. Consultations: 1. Heme/Oncology - Dr. Negro Medication Reconciliation Continued Medications: Denosumab (Xgeva) 120 Mg/1.7 Ml Inj 1 DOSE SQ MONTHLY GETS SHOT ON THE THIRD WEEK OF EVERY MONTH Fentanyl (Fentanyl) 25 Mcg Tdsy 25 MCG TOP [id number] Furosemide (Lasix) 40 Mg Tab 40 MG PO DAILY PRN for FLUID RETENTION, TAB Letrozole (Femara) 2.5 Mg Tab 2.5 MG PO QPM, TAB Levothyroxine Sodium (Synthroid) 25 Mcg Tab 25 MCG PO BID, TAB Liothyronine Sodium (Liothyronine Sodium) 5 Mcg Tab 5 MCG PO BID Montelukast Sodium (Singulair) 10 Mg Tab 10 MG PO DAILY, TAB Multivitamin (Multivitamin) Tab 1 TAB PO DAILY Octreotide Acetate (Sandostatin [place]) Unknown Strength Kit 1 DOSE SQ MONTHLY THE THIRD WEEK OF THE MONTH Oxycodone Hcl (Oxycodone Hcl) 10 Mg Tab 10 MG PO Q4-6HRS PRN for Pain, TAB Polyethylene Glycol 3350 (Miralax) 1 Pow Pow 17 GM PO DAILY PRN for Constipation, GM Senna (Senokot) 8.6 Mg Tab 17.2 MG PO BID PRN for Constipation, TAB Discharge Exam Review of Systems: Constitutional: + problem reported (denies headache), No fever, No chills Eyes: No worsening of vision Respiratory: No cough, No shortness of breath Cardiovascular: No chest pain, No palpitations Abdomen: No pain, No nausea, No vomiting, No diarrhea, No constipation Musculoskeletal: No swelling, No calf pain Genitourinary - Female: No dysuria Neurologic: No weakness, No numbness/tingling Hematologic / Lymphatic: No abnormal bleeding/bruising Integumentary: No rash Physical Exam: General Appearance: no apparent distress, + thin Eyes: sclerae normal ENT: hearing grossly normal Neck: supple, no JVD, trachea midline Respiratory/Chest: lungs clear, normal breath sounds, no respiratory distress, no accessory muscle use Cardiovascular: regular rate, rhythm, no gallop, no JVD, no murmur Abdomen / GI: normal bowel sounds, non tender, soft Extremities: no calf tenderness, no pedal edema Neurologic/Psychiatric: no motor/sensory deficits, alert, oriented x 3, + pertinent finding (she is slow to respond to some questions asked; almost distracted/forgot questions asked) Skin: normal color, warm/dry Hospital Course ADMISSION: 57 y/o F Hx metastatic carcinoid vs breast CA - liver and bone involvement (primary has not been defined), hypercalcemia, hypothyroidism, asthma. She is receiving treatment with Xgeva presently. She has had worsening generalized pain and confusion over the past 2 days. She visited the ER AM and was DCd when her pain was adequately controlled. She returns primarily due to confusion. She is able to maintain a conversation but is otherwise disoriented and cannot recall basic things such as names of her family members and is not oriented to time and place. Due to hepatic involvement of her CA, an ammonia level was obtained which returned elevated at 110. Also of concern, a noncontrast MRI brain revealed nonspecific enhancement of the cerebral and frontal regions BL. She will be admitted for AMS which may be multifactorial or due primarily to hepatic encephalopathy. Initial labs are notable for an elevated bilirubin, AP and AST. INR is also slightly elevated and a calcium level is low. She does not complain of pain at the time of admission. HOSPITAL COURSE: Acute Metabolic Encephalopathy 2/2 Hepatic Encephalopathy and/or Subdural Hematoma: - Ammonia 110 on admission - had 4 loose BMs during stay in hospital with lactulose administration- per patient's son her mentation is much improved from how she has been over the past couple days but not at baseline - she was able to name her son/DIL at bedside which was an issue prior to admission - given her presentation would suspect her confusion is more from hyperammonemia then the hematoma given the small nature of this and the improvement with lactulose administration and BMs Acute Trace R Subdural Hematoma: - Initial MRI w/o contrast was concerning for meningeal carcinomatosis - however MRI with contrast suggests trace subdural. No known trauma. - Due to liver metastasis her INR is elevated at 1.4 and platelets at 66; Hgb 7.9 - No direct findings to suggest metastatic lesions at this time - no focal neurological deficits appreciated on examination Metastatic Neuroendocrine vs Breast CA - No Confirmed Primary Source - Liver/ Bone Mets: - Liver lesion not accessible for biopsy - follows with Dr. Koehler Hypocalcemia: - Previous H/O hypercalcemia - corrected calcium 7.4 - calcium gluconate given during admission - will need close monitoring even as outpatient Hypothyroidism: - TSH checked due to mentation - WNL Asthma without Exacerbation: STABLE Moderate Protein Malnutrition: Noted Disposition: - Due to MRI findings it was discussed with patient and family to transfer to [facility] in [place] - Discussed with Dr. Reyna with neurosurgery about the patient's case and he was willing to accept patient in transfer - she was transported via helicopter to [facility] Prolonged time of 100 minutes. This includes chart review, continued patient assessment, discussion with and son, coordination of care with tertiary center and medevac crew, and documentation Supervising Note Dr. Skinner I performed a history and physical examination on the patient. I reviewed above note and agree with it. I discussed plan with APC and patient. During my face to face encounter with the patient, I answered all of the patient's questions. Due to intracranial bleed (subdural hematoma), will need to transfer patient to [facility]. This was discussed with patient's son. Total Time Spent: Greater than 30 minutes This includes examination of the patient, discharge planning, medication reconciliation, and communication with other providers. Discharge Instructions Please refer to the electronic Patient Visit Report (Discharge Instructions) for additional information. Additional Copies To Edward Shepherd M.D.; Eloy Koehler MD
[2017-11-11] MEDS ORDERED: FENTANYL PATCH REMOVE & WASTE SCH (20:59)
== END 2017-11-09 11:00 | disposition short-term general hospital (02) | DRG 64 ==
LOC: C.EDB 18:10 → C.4E 20:35 → CANRESERV 20:43 → ENRESERV 20:43 → EDBEDREQSVC 20:51 → ENRESERV 20:56 → OBSVTOIN 11-09 09:10
PROVIDERS: ADMIT Internal Medicine; ATTEND Internal Medicine
DX: I62.00 Nontraumatic subdural hemorrhage, unspecified (principal); G93.41 Metabolic encephalopathy; C78.7 Secondary malignant neoplasm of liver and intrahepatic bile duct; E44.0 Moderate protein-calorie malnutrition; C79.51 Secondary malignant neoplasm of bone; K72.90 Hepatic failure, unspecified without coma; D64.9 Anemia, unspecified; C80.1 Malignant (primary) neoplasm, unspecified; E03.9 Hypothyroidism, unspecified; E83.51 Hypocalcemia; J45.909 Unspecified asthma, uncomplicated; D69.59 Other secondary thrombocytopenia; D63.0 Anemia in neoplastic disease